=== PATIENT | female | born 1950 | race Caucasian/White ===

== ENCOUNTER 2019-03-26 13:53 | Emergency (ER) | payer MEDICARE, OTHER ==
[~2019-03-26] VITALS: Ht 170.2 cm; Wt 72.6 kg
[~2019-03-26 13:53] MED LIST: ALLO100 PO; ASPI81CH PO; Amoxicillin500 MG PO; CEPH500 PO; CITA20 PO; CLON1 PO; COLCRYS0.6 MG PO; FISH1000 PO; FLAX PO; HYDACE5 PO; LEVSOD50 PO; LISI10 PO; LISI5 PO; LORA1 PO; METF500 PO; ONDA4 PO; ONDA4ODT MM; Percocet 5-3251 EACH PO; RXONDA4ODT MM; ULTRA-LIGHT RO1 EACH MC; VICODIN ES 7.51 EACH PO
[2019-03-26] MEDS ORDERED: SUMA25 PO (14:18)
[2019-03-26] MEDS ORDERED: Prilosec Otc20 MG PO (14:18)
[2019-03-26] MEDS ORDERED: Percocet 5-3251 EACH PO ×2 (14:48→15:01)
[2019-03-26] MEDS ORDERED: Monodox100 MG PO (14:48)
== END 2019-03-26 14:53 | disposition home or self-care (01) ==
LOC: ER 13:53
DX: L03.116 Cellulitis of left lower limb (principal); Z79.899 Other long term (current) drug therapy; E11.9 Type 2 diabetes mellitus without complications; I10 Essential (primary) hypertension
CPT/HCPCS: 73630; 99283-25

== ENCOUNTER 2020-05-30 17:09 | Emergency (ER) | payer MEDICARE, OTHER ==
[~2020-05-30] VITALS: Ht 172.7 cm; Wt 81.7 kg
[~2020-05-30 17:09] MED LIST changes: +Monodox100 MG PO; +Prilosec Otc20 MG PO; +SUMA25 PO
[2020-05-30 18:18] LABS: BASOPHILS ABSOLUTE AUTO 0.03 K/mm3 (0.00-0.23); BASOPHILS PERCENT AUTO 1 % (0-2); EOSINOPHILS ABSOLUTE AUTO 0.14 K/mm3 (0.00-0.68); EOSINOPHILS PERCENT AUTO 3 % (0-6); Hemoglobin 13.2 g/dL (11.5-16.0); IMMATURE GRAN ABSOLUTE AUTO 0.02 K/mm3 (0.00-0.10); IMMATURE GRAN PERCENT AUTO 0 % (0-1); LYMPHOCYTES ABSOLUTE AUTO 1.32 K/mm3 (0.84-5.20); LYMPHOCYTES PERCENT AUTO 26 % (21-46); MONOCYTES ABSOLUTE AUTO 0.38 K/mm3 (0.16-1.47); MONOCYTES PERCENT AUTO 7 % (4-13); Mean Corpuscular HGB 28.4 pg (26.0-34.0); Mean Corpuscular HGB Conc 30.7 g/dL (31.5-36.5); Mean Corpuscular Volume 93 fL (80-100); Mean Platelet Volume 9.6 fL (9.1-12.4); NEUTROPHILS ABSOLUTE AUTO 3.25 K/mm3 (1.96-9.15); NEUTROPHILS PERCENT AUTO 63 % (41-73); Platelet Count 192 K/mm3 (150-400); RDW Coefficient Variation 13.5 % (11.7-14.2); RDW Standard Deviation 45.8 fL (35.1-46.3); Red Blood Cell Count 4.65 M/mm3 (3.80-5.20); White Blood Cell Count 5.14 K/mm3 (4.00-11.30)
[2020-05-30 18:35] LABS: Bilirubin, Total 0.3 mg/dL (0.1-1.0); Bun/Creatinine Ratio 18.9 (12.0-20.0); Calcium, Blood 9.5 mg/dL (8.5-10.1); Creatinine, Blood 1.06 mg/dL (0.40-1.00); Potassium, Blood 3.9 mmol/L (3.5-5.5)
[2020-05-30] MEDS ORDERED: PRED10 PO (21:46)
== END 2020-05-30 21:55 | disposition home or self-care (01) ==
LOC: ER 17:09
PROVIDERS: Physician Assistant
DX: R22.0 Localized swelling, mass and lump, head (principal); T78.40XA Allergy, unspecified, initial encounter; I10 Essential (primary) hypertension; E11.9 Type 2 diabetes mellitus without complications
CPT/HCPCS: 36415; 80053; 84484; 85025; 93005; 93010; 96374; 99283-25; J2930

== ENCOUNTER 2020-10-18 15:00 | Emergency (ER) | payer MEDICARE, OTHER ==
[~2020-10-18] VITALS: Ht 172.7 cm; Wt 72.6 kg
[~2020-10-18 15:00] MED LIST changes: +PRED10 PO
[2020-10-18 16:06] LABS: Source, Urine Clean Catch
[2020-10-18 16:08] LABS: Appearance, Urine Cloudy (Clear); Bilirubin, Urine Neg (Neg); Blood, Urine 5+ (Neg); Color, Urine Amber (P-Yellow); Glucose Qualitative, Urine Neg (Neg); Ketones, Urine 1+ (Neg); Leukocyte Esterase, Urine 3+ (Neg); Nitrite, Urine Neg (Neg); Protein, Urine 3+ (Neg); Specific Gravity, Urine 1.015 (1.003-1.022); Urobilinogen, Urine NORM (Normal); pH, Urine 6.5 (5.0-8.0)
[2020-10-18 16:09] LABS: BASOPHILS ABSOLUTE AUTO 0.04 K/mm3 (0.00-0.23); BASOPHILS PERCENT AUTO 0 % (0-2); EOSINOPHILS PERCENT AUTO 1 % (0-6); Hematocrit 44.2 % (33.0-51.0); Hemoglobin 13.8 g/dL (11.5-16.0); IMMATURE GRAN ABSOLUTE AUTO 0.04 K/mm3 (0.00-0.10); IMMATURE GRAN PERCENT AUTO 0 % (0-1); LYMPHOCYTES ABSOLUTE AUTO 1.58 K/mm3 (0.84-5.20); LYMPHOCYTES PERCENT AUTO 15 % (21-46); MONOCYTES ABSOLUTE AUTO 0.65 K/mm3 (0.16-1.47); MONOCYTES PERCENT AUTO 6 % (4-13); Mean Corpuscular HGB 28.4 pg (26.0-34.0); Mean Corpuscular HGB Conc 31.2 g/dL (31.5-36.5); Mean Corpuscular Volume 91 fL (80-100); Mean Platelet Volume 9.7 fL (9.1-12.4); NEUTROPHILS ABSOLUTE AUTO 8.28 K/mm3 (1.96-9.15); NEUTROPHILS PERCENT AUTO 77 % (41-73); Platelet Count 192 K/mm3 (150-400); RDW Coefficient Variation 13.6 % (11.7-14.2); RDW Standard Deviation 45.1 fL (35.1-46.3); Red Blood Cell Count 4.86 M/mm3 (3.80-5.20); White Blood Cell Count 10.69 K/mm3 (4.00-11.30)
[2020-10-18 16:18] LABS: Bacteria Mod /hpf; Squamous Epithelial Cells Not Seen /hpf (Few); White Blood Cells, Urine TNTC /hpf (0-5)
[2020-10-18 16:19] LABS: Red Blood Cells, Urine TNTC /hpf (0-2)
[2020-10-18 16:25] LABS: Alanine Aminotransfer (ALT/SGP 16 U/L (12-78); Albumin, Blood 3.8 g/dL (3.4-5.0); Albumin/Globulin Ratio 0.9 (0.8-1.8); Alk Phos 121 U/L (50-136); Anion Gap 5 mmol/L (6-16); Aspartate Aminotrans (AST/SGOT 13 U/L (12-37); Bilirubin, Total 0.4 mg/dL (0.1-1.0); Blood Urea Nitrogen 12 mg/dL (8-24); Bun/Creatinine Ratio 13.2 (12.0-20.0); CO2, Blood 27 mmol/L (21-32); Calcium, Blood 9.8 mg/dL (8.5-10.1); Chloride, Blood 108 mmol/L (98-108); Creatinine, Blood 0.91 mg/dL (0.40-1.00); Globulin, Blood 4.1 g/dL (2.2-4.0); Glomerular Filtration Rate >60 (60-); Glucose, Blood 167 mg/dL (70-99); Potassium, Blood 4.4 mmol/L (3.5-5.5); Sodium, Blood 140 mmol/L (136-145); Total Protein, Blood 7.9 g/dL (6.4-8.2)
[2020-10-18] MEDS ORDERED: CEPH500 PO (16:48)
[2020-10-18] MEDS ORDERED: Pyridium200 MG PO (16:48)
== END 2020-10-18 17:00 | disposition home or self-care (01) ==
LOC: ER 15:00
PROVIDERS: Physician Assistant
DX: N39.0 Urinary tract infection, site not specified (principal); I10 Essential (primary) hypertension; E11.9 Type 2 diabetes mellitus without complications; Z79.52 Long term (current) use of systemic steroids; Z79.899 Other long term (current) drug therapy
CPT/HCPCS: 36415; 80053; 81001; 85025; 87086; 93005; 93010; 99283-25; A9270-GY

== ENCOUNTER 2020-10-30 13:11 | Emergency (ER) | payer MEDICARE, OTHER ==
[~2020-10-30] VITALS: Ht 172.7 cm; Wt 72.6 kg
[~2020-10-30 13:11] MED LIST changes: +Pyridium200 MG PO
[2020-10-30 14:18] LABS: BASOPHILS ABSOLUTE AUTO 0.03 K/mm3 (0.00-0.23); BASOPHILS PERCENT AUTO 0 % (0-2); EOSINOPHILS ABSOLUTE AUTO 0.06 K/mm3 (0.00-0.68); EOSINOPHILS PERCENT AUTO 1 % (0-6); Hematocrit 45.7 % (33.0-51.0); Hemoglobin 14.6 g/dL (11.5-16.0); IMMATURE GRAN ABSOLUTE AUTO 0.05 K/mm3 (0.00-0.10); IMMATURE GRAN PERCENT AUTO 1 % (0-1); LYMPHOCYTES ABSOLUTE AUTO 1.27 K/mm3 (0.84-5.20); LYMPHOCYTES PERCENT AUTO 14 % (21-46); MONOCYTES ABSOLUTE AUTO 0.51 K/mm3 (0.16-1.47); MONOCYTES PERCENT AUTO 6 % (4-13); Mean Corpuscular HGB 28.3 pg (26.0-34.0); Mean Corpuscular HGB Conc 31.9 g/dL (31.5-36.5); Mean Corpuscular Volume 89 fL (80-100); NEUTROPHILS PERCENT AUTO 79 % (41-73); RDW Coefficient Variation 13.9 % (11.7-14.2); RDW Standard Deviation 45.9 fL (35.1-46.3); Red Blood Cell Count 5.15 M/mm3 (3.80-5.20); White Blood Cell Count 8.92 K/mm3 (4.00-11.30)
[2020-10-30 14:28] LABS: Appearance, Urine Clear (Clear); Blood, Urine Neg (Neg); Color, Urine Yellow (P-Yellow); Glucose Qualitative, Urine Neg (Neg); Ketones, Urine 1+ (Neg); Leukocyte Esterase, Urine 1+ (Neg); Nitrite, Urine Neg (Neg); Protein, Urine 1+ (Neg); Source, Urine Clean Catch; Urobilinogen, Urine NORM (Normal)
[2020-10-30 14:30] LABS: Mean Platelet Volume 10.4 fL (9.1-12.4); Platelet Count 182 K/mm3 (150-400)
[2020-10-30 14:40] LABS: Bilirubin, Urine 1+ (Neg)
[2020-10-30 14:41] LABS: Calcium Oxalate Crystals Many /hpf; Mucus Mod (0-Heavy)
[2020-10-30 14:42] LABS: Bacteria Few /hpf; Red Blood Cells, Urine Not Seen /hpf (0-2); Squamous Epithelial Cells Few /hpf (Few); White Blood Cells, Urine 0-2 /hpf (0-5)
[2020-10-30 15:13] LABS: Alanine Aminotransfer (ALT/SGP 14 U/L (12-78); Albumin, Blood 4.2 g/dL (3.4-5.0); Alk Phos 130 U/L (50-136); Anion Gap 5 mmol/L (6-16); Aspartate Aminotrans (AST/SGOT 15 U/L (12-37); Bilirubin, Total 0.5 mg/dL (0.1-1.0); Blood Urea Nitrogen 14 mg/dL (8-24); Bun/Creatinine Ratio 17.8 (12.0-20.0); CO2, Blood 26 mmol/L (21-32); Calcium, Blood 9.7 mg/dL (8.5-10.1); Chloride, Blood 108 mmol/L (98-108); Creatinine, Blood 0.79 mg/dL (0.40-1.00); Globulin, Blood 4.1 g/dL (2.2-4.0); Glomerular Filtration Rate >60 (60-); Glucose, Blood 168 mg/dL (70-99); Potassium, Blood 4.3 mmol/L (3.5-5.5); Sodium, Blood 139 mmol/L (136-145); Total Protein, Blood 8.3 g/dL (6.4-8.2)
[2020-10-30] MEDS ORDERED: LISINOPRIL2.5 MG PO (15:35)
[2020-10-30] MEDS ORDERED: EPINEPHRIN0.3 MG/0.1 IM (15:36)
[2020-10-30] MEDS ORDERED: Ventolin/Prove6.7 GM INH (15:37)
[2020-10-30] MEDS ORDERED: SULTRIDS PO (16:49)
== END 2020-10-30 17:15 | disposition home or self-care (01) ==
LOC: ER 13:11
PROVIDERS: Emergency Medicine
DX: N39.0 Urinary tract infection, site not specified (principal); I10 Essential (primary) hypertension; E11.9 Type 2 diabetes mellitus without complications; Z79.02 Long term (current) use of antithrombotics/antiplatelets; Z79.899 Other long term (current) drug therapy
CPT/HCPCS: 36415; 71046; 80053; 81001; 84484; 85025; 87086; 87147; 93005; 93010; 96374; 99284-25; J2060

== ENCOUNTER 2021-06-22 19:03 | Emergency (ER) | payer MEDICARE, OTHER ==
[~2021-06-22] VITALS: Ht 172.7 cm; Wt 68.0 kg
[~2021-06-22 19:03] MED LIST changes: +EPINEPHRIN0.3 MG/0.1 IM; +LISINOPRIL2.5 MG PO; +SULTRIDS PO; +Ventolin/Prove6.7 GM INH
[2021-06-22 20:20] LABS: SARS-Cov-2 (COVID-19) PCR, MMC NEGATIVE (NEGATIVE)
[2021-06-22] MEDS ORDERED: AMOCLA875 PO (21:04)
[2021-06-22] MEDS ORDERED: PSEU120ER PO (21:04)
[2021-06-22] MEDS ORDERED: FLUT.05NI (21:04)
== END 2021-06-22 21:28 | disposition home or self-care (01) ==
LOC: ER 19:03
PROVIDERS: Physician Assistant
DX: J32.9 Chronic sinusitis, unspecified (principal); B96.89 Other specified bacterial agents as the cause of diseases classified elsewhere; E11.9 Type 2 diabetes mellitus without complications; I10 Essential (primary) hypertension; Z20.822 Contact with and (suspected) exposure to COVID-19; Z79.899 Other long term (current) drug therapy
CPT/HCPCS: 71045; 87081; 87430; 99284-25; A9270; U0004

== ENCOUNTER 2021-12-29 12:12 | Emergency (ER) | payer MEDICARE, OTHER ==
[~2021-12-29] VITALS: Ht 170.2 cm; Wt 72.6 kg
[~2021-12-29 12:12] MED LIST changes: +AMOCLA875 PO; +FLUT.05NI; +PSEU120ER PO
[2021-12-29 13:46] LABS: BASOPHILS ABSOLUTE AUTO 0.04 K/mm3 (0.00-0.23); BASOPHILS PERCENT AUTO 1 % (0-2); EOSINOPHILS ABSOLUTE AUTO 0.12 K/mm3 (0.00-0.68); EOSINOPHILS PERCENT AUTO 2 % (0-6); Hematocrit 45.4 % (33.0-51.0); Hemoglobin 13.9 g/dL (11.5-16.0); IMMATURE GRAN ABSOLUTE AUTO 0.04 K/mm3 (0.00-0.10); IMMATURE GRAN PERCENT AUTO 1 % (0-1); LYMPHOCYTES ABSOLUTE AUTO 1.33 K/mm3 (0.84-5.20); LYMPHOCYTES PERCENT AUTO 19 % (21-46); MONOCYTES ABSOLUTE AUTO 0.48 K/mm3 (0.16-1.47); MONOCYTES PERCENT AUTO 7 % (4-13); Mean Corpuscular HGB 26.9 pg (26.0-34.0); Mean Corpuscular HGB Conc 30.6 g/dL (31.5-36.5); Mean Corpuscular Volume 88 fL (80-100); Mean Platelet Volume 9.5 fL (9.1-12.4); NEUTROPHILS ABSOLUTE AUTO 4.89 K/mm3 (1.96-9.15); NEUTROPHILS PERCENT AUTO 71 % (41-73); Platelet Count 233 K/mm3 (150-400); Red Blood Cell Count 5.16 M/mm3 (3.80-5.20)
[2021-12-29 13:58] LABS: Alanine Aminotransfer (ALT/SGP 21 U/L (12-78); Albumin, Blood 3.8 g/dL (3.4-5.0); Albumin/Globulin Ratio 0.9 (0.8-1.8); Alk Phos 128 U/L (50-136); Anion Gap 7 mmol/L (6-16); Aspartate Aminotrans (AST/SGOT 13 U/L (12-37); Bilirubin, Total 0.4 mg/dL (0.1-1.0); Blood Urea Nitrogen 12 mg/dL (8-24); Bun/Creatinine Ratio 14.9 (12.0-20.0); CO2, Blood 25 mmol/L (21-32); Calcium, Blood 9.3 mg/dL (8.5-10.1); Chloride, Blood 104 mmol/L (98-108); Creatinine, Blood 0.81 mg/dL (0.40-1.00); Globulin, Blood 4.4 g/dL (2.2-4.0); Glomerular Filtration Rate >60 (60-); Glucose, Blood 243 mg/dL (70-99); Potassium, Blood 4.7 mmol/L (3.5-5.5); Sodium, Blood 136 mmol/L (136-145); Total Protein, Blood 8.2 g/dL (6.4-8.2)
[2021-12-29 14:01] LABS: Source, Urine Clean Catch
[2021-12-29 14:12] LABS: Bilirubin, Urine Neg (Neg); Blood, Urine Neg (Neg); Glucose Qualitative, Urine Neg (Neg); Ketones, Urine Neg (Neg); Leukocyte Esterase, Urine 2+ (Neg); Nitrite, Urine Neg (Neg); Protein, Urine Neg (Neg); Specific Gravity, Urine 1.015 (1.003-1.022); Urobilinogen, Urine NORM (Normal)
[2021-12-29 14:37] LABS: Appearance, Urine Hazy (Clear); Color, Urine Pale Yellow (P-Yellow)
[2021-12-29 14:38] LABS: Amorphous Light (0-Heavy); Bacteria Mod /hpf; Mucus Mod (0-Heavy); Red Blood Cells, Urine 0-2 /hpf (0-2); Squamous Epithelial Cells Rare /hpf (Few)
[2021-12-29] MEDS ORDERED: CEPH500 PO ×2 (16:41→16:49)
== END 2021-12-29 16:53 | disposition home or self-care (01) ==
LOC: ER 12:12
PROVIDERS: Emergency Medicine
DX: N17.9 Acute kidney failure, unspecified (principal); E11.65 Type 2 diabetes mellitus with hyperglycemia; N39.0 Urinary tract infection, site not specified; E86.0 Dehydration; I10 Essential (primary) hypertension; Z79.899 Other long term (current) drug therapy
CPT/HCPCS: 71045; 80053; 81001; 84484; 85025; 93005; 93010; 99285-25; A9270

== ENCOUNTER 2022-02-25 14:56 | Inpatient (IN) | payer MEDICARE, OTHER ==
[~2022-02-25] VITALS: Ht 172.7 cm; Wt 71.0 kg
[2022-02-25 15:57] LABS: Ethanol (Alcohol), Blood, Med <3 mg/dL; Magnesium, Blood 2.6 mg/dL (1.6-2.4)
[2022-02-25 15:59] LABS: BASOPHILS ABSOLUTE AUTO 0.03 K/mm3 (0.00-0.23); BASOPHILS PERCENT AUTO 0 % (0-2); EOSINOPHILS ABSOLUTE AUTO 0.01 K/mm3 (0.00-0.68); EOSINOPHILS PERCENT AUTO 0 % (0-6); Hematocrit 53.1 % (33.0-51.0); Hemoglobin 16.5 g/dL (11.5-16.0); IMMATURE GRAN ABSOLUTE AUTO 0.14 K/mm3 (0.00-0.10); IMMATURE GRAN PERCENT AUTO 1 % (0-1); LYMPHOCYTES ABSOLUTE AUTO 1.79 K/mm3 (0.84-5.20); LYMPHOCYTES PERCENT AUTO 11 % (21-46); MONOCYTES ABSOLUTE AUTO 0.83 K/mm3 (0.16-1.47); MONOCYTES PERCENT AUTO 5 % (4-13); Mean Corpuscular HGB 28.5 pg (26.0-34.0); Mean Corpuscular HGB Conc 31.1 g/dL (31.5-36.5); Mean Corpuscular Volume 92 fL (80-100); NEUTROPHILS ABSOLUTE AUTO 13.18 K/mm3 (1.96-9.15); NEUTROPHILS PERCENT AUTO 82 % (41-73); Platelet Count 179 K/mm3 (150-400); RDW Standard Deviation 50.7 fL (35.1-46.3); Red Blood Cell Count 5.79 M/mm3 (3.80-5.20); White Blood Cell Count 15.98 K/mm3 (4.00-11.30)
[2022-02-25 16:09] LABS: Alanine Aminotransfer (ALT/SGP 18 U/L (12-78); Albumin, Blood 3.5 g/dL (3.4-5.0); Albumin/Globulin Ratio 0.8 (0.8-1.8); Alk Phos 130 U/L (50-136); Anion Gap 12 mmol/L (6-16); Aspartate Aminotrans (AST/SGOT 8 U/L (12-37); Bilirubin, Total 0.9 mg/dL (0.1-1.0); Blood Urea Nitrogen 62 mg/dL (8-24); Bun/Creatinine Ratio 30.1 (12.0-20.0); CO2, Blood 20 mmol/L (21-32); Calcium, Blood 9.9 mg/dL (8.5-10.1); Chloride, Blood 105 mmol/L (98-108); Creatinine, Blood 2.06 mg/dL (0.40-1.00); Globulin, Blood 4.5 g/dL (2.2-4.0); Glomerular Filtration Rate 24 (60-); Glucose, Blood 664 mg/dL (70-99); Potassium, Blood 4.9 mmol/L (3.5-5.5); Sodium, Blood 137 mmol/L (136-145)
[2022-02-25 16:57] LABS: Source, Urine Clean Catch
[2022-02-25 17:03] LABS: Appearance, Urine Clear (Clear); Blood, Urine Neg (Neg); Color, Urine Amber (P-Yellow); Glucose Qualitative, Urine 4+ (Neg); Ketones, Urine 1+ (Neg); Leukocyte Esterase, Urine Neg (Neg); Nitrite, Urine Neg (Neg); Protein, Urine 1+ (Neg); Urobilinogen, Urine 1+ (Normal)
[2022-02-25 17:15] LABS: Bilirubin, Urine 2+ (Neg)
[2022-02-25 17:21] LABS: U Amphetamine Screen Not Detected; U Barbituate Screen Not Detected; U Benzodiazapine Screen Not Detected; U Buprenorphine Screen Not Detected; U Cannabinoids Screen Not Detected; U Cocaine Screen Not Detected; U Methadone Screen Not Detected; U Methamphetamine Screen Not Detected; U Opiates Screen Not Detected; U Oxycodone Screen Not Detected; U Phencyclidine Screen Not Detected; U Propoxyphene Screen Not Detected
[2022-02-26 04:27] LABS: Hematocrit 49.5 % (33.0-51.0); Hemoglobin 15.2 g/dL (11.5-16.0); Mean Corpuscular HGB Conc 30.7 g/dL (31.5-36.5); Mean Corpuscular Volume 91 fL (80-100); Mean Platelet Volume 11.1 fL (9.1-12.4); Platelet Count 152 K/mm3 (150-400); RDW Coefficient Variation 15.1 % (11.7-14.2); Red Blood Cell Count 5.43 M/mm3 (3.80-5.20); White Blood Cell Count 14.97 K/mm3 (4.00-11.30)
[2022-02-26 04:40] LABS: Bun/Creatinine Ratio 40.9 (12.0-20.0); Creatinine, Blood 1.32 mg/dL (0.40-1.00); Potassium, Blood 3.7 mmol/L (3.5-5.5)
--- NOTE | 2022-02-26 05:56 | NUR ---
ARRIVED IN PCU AT 2150 SHIFT SANTANA: NEURO - PT ALERT TO PERSON AND PLACE, NOT A VERY GOOD HISTORIAN AND UNABLE TO GET ANSWERS REGARDING HISTORY, LIVING ARRANGEMENT AND ADLs. PER PT HX, PT HAS MEMORY LOSS, COULD BE DIMENTIA. DID HAVE AN EPISODE OF AGITATION AND CONFUSION AROUND 0400. CAN REPOSITION SELF IN BED INDEPENDENTLY BUT UNABLE TO TEST GAIT. EXTREMITIES EQUAL IN STRENGTH. BED ALARM ON. RESP - DIMINISHED/CLEAR LUNG SOUNDS, NO COUGH, ON ROOM AIR. NO COMPLAINTS OF DIFFICULTY BREATHING OR SOB. CARDIAC - NSR HR IN THE 80-90's. AFEBRILE. NO EDEMA. NO PEDAL PULSES FELT OR HEARD ON DOPPLER, WAS ABLE TO GET A TIBIAL PULSE PER DOPPLER. GI/ - PT ON CLEAR LIQUID DIET, NO ISSUES WITH SWALLOWING. UNABLE TO VOID AND GOT AGITATED, BLADDER SCANNED PT AND STRAIGHT CATH FOR A TOTAL OF 500 ML. PT HAS A BRIEF ON. Q4 BLOOD SUGAR CHECKS AT THE MOMENT. INTEG - SKIN IS INTACT. MINOR SCATTERED ABRASIONS ALSO HAS ABRASIONS/CALLUS ON FEET.
--- NOTE | 2022-02-26 07:39 | NUR ---
Pt is awake, cooperative and pleasant/appropriate in conversation. She can state her name but does not know where she is at. States she thinks she might be in [place]. States she does not know where she lives. When asked about her family, she says she can't quite remember anything about her family right now. Face is pale, RR regular, unlabored while sitting up in bed. She asked for ice water, states she feels very thirsty. Fingernails are pale, dusky and fingers are cool and have cyanosis and areas of pallor. Her radial pulses are palpable. Noted swelling of hands and fingers. Toes likewise are cool, nail beds are pale. Cap refill is sluggish and right foot is cool and dusky. Left foot is cyanotic, swollen and pt states it feels numb. Unable to palpate pulses on her feet. Pt states that she feels nauseated.
--- NOTE | 2022-02-26 08:10 | NUR ---
Pt is nauseated, vomiting. Call to Dr. Boyd to ask for antiemetics.
[2022-02-26] MEDS ORDERED: SUMATRIPTAN SUCCINAT PO (09:51)
[2022-02-26] MEDS ORDERED: ALLO100 PO (09:52)
[2022-02-26] MEDS ORDERED: GLIP5 PO (09:53)
[2022-02-26] MEDS ORDERED: DOXYLAMINE SUCCINATE PO (09:54)
--- NOTE | 2022-02-26 09:55 | NUR ---
Mentation clearing. She is able to recall some details of instruction and explanation from an hour ago. Appropriate conversation, admits to not remembering what has been going on at home for past several days. Still having nausea after dose of zofran, but no further vomiting. Tried sips of chris mist and clear jello, but unable to tolerate due to nausea, she says. Says that she just wants to sleep. Left side lying, eyes closed and denies pain at this time.
--- NOTE | 2022-02-26 09:58 | NUR ---
Main concerns this morning: confusion, clearing. CBG normalizing. --nausea, perisistent. Abdominal pain to gentle palpation. BS active. --peripheral cyanosis hands and feet. Pulses BLE unable to palpate, only able to verify by doppler and left foot pedal unable to find by doppler. Also has swelling and pain of left leg to palpation.
--- NOTE | 2022-02-26 11:38 | NUR ---
rounded with Dr. Avelar in room. Pt's son Ruslan and Devin are in room. Ruslan is distraught, crying and talking with his mom, attempting to convince her to eat/drink because he "doesn't want to see her with a feeding tube up her nose". He was quite emotional at the news that she has had some mini-strokes. Pt is lying on her side, still unable to tolerate clear liquids. ATempted to have some popsicle but states that she is still nauseated.
[2022-02-26 12:35] LABS: Influenza A, PCR NEGATIVE (NEGATIVE); Influenza B, PCR NEGATIVE (NEGATIVE); Resp Syncytial Virus, PCR NEGATIVE (NEGATIVE); SARS-Cov-2 (COVID-19) PCR, MMC NEGATIVE (NEGATIVE)
--- NOTE | 2022-02-26 12:42 | NUR ---
Call to Dr. Boyd; LE duplex order updated to bilateral. [facility] is here, completing the exams.
[2022-02-26 14:06] LABS: CHOL/HDL RATIO 5.2; Cholesterol 177 mg/dL (50-200); HDL Cholesterol 34 mg/dL (>39); Low Density Lipoprotein Chol 101 mg/dL (0-110); Triglycerides 212 mg/dL (30-160); Very Low Density Lipoprot Chol 42 mg/dL (6-32)
[2022-02-26 14:11] LABS: Anti-Xa UFH, PHA Monitoring 0.24 IU/mL; International Normalized Ratio 1.07; Prothrombin Time Results 11.2 Sec (9.7-11.5)
--- NOTE | 2022-02-26 17:03 | NUR ---
Updated Devin and son Ruslan on the pt's condition and current plan of care and treatment. Pt is tolerating some liquids now at this time.
--- NOTE | 2022-02-26 17:12 | NUR ---
Dr. Caruso is here talking with the patient, pt's Devin and pt's son Ruslan.
--- NOTE | 2022-02-26 17:48 | NUR ---
Called Dr. Lucas to let her know that VQ scan cannot be done until tomorrow morning. Pt's LLE was wrapped with Torrey wrap by Dr. Caruso. Pt will be going down for CT scan shortly.
--- NOTE | 2022-02-26 18:21 | NUR ---
Pt returned from CT scan, repositioned self to right side lying and left leg was elevated on three pillows; pt states it feels very comfortable. She had some sprite, but does not want any more by mouth at this time. Denies any specific pain, but states general discomfort and some back pain. Warm blanket provided and pt states that it feels amazing.
--- NOTE | 2022-02-26 18:24 | NUR ---
Pt is alert, oriented to person, place and following directions. Can also recall some recent events but is often forgetful of ongoing events and recent events as well. Appropriate in conversation with staff and with her family. Pt was not tolerant of much po intake today. However, she did take some sprite, iced coffee given to her by family, ice chips and a small portion of ice cream. She declined all other p.o intake today. Had one episode of vomiting this morning, none after a dose of zofran. Generally said today that she just wanted to sleep. No specific c/o pain, but did have some abdominal tenderness noted on assessment this morning. No changes to her circulatory assessment and color/temperature of skin noted since this morning. Left leg is now wrapped in maverick wrap and elevated on pillows. Bed alarm is on.
[2022-02-27 04:18] LABS: BASOPHILS ABSOLUTE AUTO 0.02 K/mm3 (0.00-0.23); BASOPHILS PERCENT AUTO 0 % (0-2); EOSINOPHILS ABSOLUTE AUTO 0.06 K/mm3 (0.00-0.68); EOSINOPHILS PERCENT AUTO 1 % (0-6); IMMATURE GRAN ABSOLUTE AUTO 0.09 K/mm3 (0.00-0.10); IMMATURE GRAN PERCENT AUTO 1 % (0-1); LYMPHOCYTES ABSOLUTE AUTO 1.85 K/mm3 (0.84-5.20); LYMPHOCYTES PERCENT AUTO 19 % (21-46); MONOCYTES ABSOLUTE AUTO 0.62 K/mm3 (0.16-1.47); MONOCYTES PERCENT AUTO 7 % (4-13); Mean Corpuscular HGB 28.6 pg (26.0-34.0); Mean Corpuscular HGB Conc 31.7 g/dL (31.5-36.5); Mean Corpuscular Volume 90 fL (80-100); NEUTROPHILS ABSOLUTE AUTO 6.91 K/mm3 (1.96-9.15); NEUTROPHILS PERCENT AUTO 72 % (41-73); RDW Coefficient Variation 15.1 % (11.7-14.2); RDW Standard Deviation 50.2 fL (35.1-46.3); Red Blood Cell Count 4.54 M/mm3 (3.80-5.20); White Blood Cell Count 9.55 K/mm3 (4.00-11.30)
[2022-02-27 04:43] LABS: Mean Platelet Volume 12.4 fL (9.1-12.4); Platelet Count 59 K/mm3 (150-400)
[2022-02-27 05:25] LABS: Albumin, Blood 2.5 g/dL (3.4-5.0); Anion Gap 5 mmol/L (6-16); Blood Urea Nitrogen 30 mg/dL (8-24); CO2, Blood 24 mmol/L (21-32); Calcium, Blood 8.6 mg/dL (8.5-10.1); Chloride, Blood 113 mmol/L (98-108); Creatinine, Blood 0.79 mg/dL (0.40-1.00); Glomerular Filtration Rate >60 (60-); Glucose, Blood 253 mg/dL (70-99); Phosphorus, Blood 2.5 mg/dL (2.5-4.9); Potassium, Blood 5.4 mmol/L (3.5-5.5); Sodium, Blood 142 mmol/L (136-145)
--- NOTE | 2022-02-27 06:09 | NUR ---
SHIFT SUMMARY PT ALERT, ORIENTED TO SELF AND PERSON. FORGETFUL, MOSTLY WHEN WAKING UP FROM SLEEPING. ASKS WHERE SHE IS AT, UNAWARE SHE IS IN THE HOSPITAL. BP STABLE. ON RA SATS OVER 97%. AFEBRILE. PULSE SR 80-90'S. 1/2 NS RUNNING IN POWERGLIDE. PG DRAWS BLOOD. HEP GTT INFUSING. IN BED SLEEPING WITH CALL ALARM AT SIDE, WILL CONTINUE TO MONITOR UNTIL REPORT GIVEN TO DAYSHIFT RN
--- NOTE | 2022-02-27 07:50 | NUR ---
ASSUMED CARE OF PATIENT AT 0700. PATIENT ALERT AND ORIENTED TO SELF AND SORROUNDING. PATIENT IS AWARE THAT SHE IS IN THE HOSPITAL BUT NOT SURE WHY, DOES NOT RECALL THE DAY, MONTH AND YEAR. REORIENT PATIENT AND REASON OF ADMISSION INTO THE HOSPITAL. VSS, NO FEVER, AND NO SOB. PATIENT REPORT OF NAUSEOUS MEDICATED WITH ZOLFRAN PER EMAR. PATIENT ATE COUPLE BITES OF CREAM OF WHEAT AND COUPLE BITES OF CUSTARD. PATIENT REPORT THAT SHE HAS NO APPETITE AND WANT TO REST. BED ALARM ON AND TWO SIDE RAIL UP FOR SAFTEY. CALL LIGHT IN REACH. WILL CONTINUE TO MONITOR PATIENT THROUGHT SHIFT.
--- NOTE | 2022-02-27 08:35 | NUR ---
DR CHATTERJEE IN ROOM TO SEE PATIENT. ORDER TO LEAVE WILLIAN WRAPED OFF FOR NOW AND CONTINUED TO ELEVATE LEFT LEG ON PILLOWS. PATIENT REPORTED TO DR CHATTERJEE OF HAVING PAIN ON LEFT LEG. PATIENT LEFT LEG WARM TO THE TOUCH AND LITTLE BIT OF REDNESS ON LEFT FOOT.
--- NOTE | 2022-02-27 11:18 | NUR ---
Pt's "Ino" and son Ruslan are at the bedside. Given an update on the pt's condition and current plan. They expressed concern about her diabetes mangament. Son Ruslan states that he went to diabetes education class with his mom years ago, but now that they will be taking care of her medications and checking her blood sugar now it would be helpful to have a refresh on it. Dietitian consultation was ordered.
--- NOTE | 2022-02-27 11:21 | NUR ---
Bedbath complete. Pt is alert, oriented to person, place, following directions and is pleasant, cheerful, grateful and cooperative. She had some nausea this morning, without vomiting and was given zofran, and has been tolerating small amounts of sprite and ice chips. Is requesting ice cream now. Voiding dark yellow urine. No bowel movement. No c/o abdominal pain. Vital signs are stable. Left lower extremity shows marked improvement from yesterday, with less swelling, still pale above the ankle but pink and warm on the ankle left foot and left toes with brisk cap refill. Able to dopple the posterial tibial pulse, but not the pedal. Pt c/o pain in the great toe Left foot and it is bright pink. Pt has allopurinol on her home med list. Dr. Caruso states it appears like gout. Right foot is cool with some dusky color, and the hands and fingers are still cool and dusky. Pt c/o feeling cold this morning. relief with warm blankets to the extremities and trunk. Declined OOB to the chair following bed bath. She was able to get up and use the bedside commode with a one person assist transfer yesterday, and is moving and repositioning in the bed without some weakness but no significant difficulty. Palliative care is visiting with family at this time. Also spoke with Layla, bed manager regarding discharge plan. Family states they do NOT want her to go to SNF because of her appetite being so poor they are worried she would not get nutrition if she is not fed.
--- NOTE | 2022-02-27 13:50 | NUR ---
heparin gtt stopped at this time, after critical high value received.
--- NOTE | 2022-02-27 13:57 | NUR ---
Dr. Lucas notified of critical high PTT; new instructions to stop heparin gtt if the platlet level drawn at this time is lower than the level drawn this morning, and started on xarelto.
[2022-02-27 14:03] LABS: Mean Platelet Volume 10.7 fL (9.1-12.4); Platelet Count 103 K/mm3 (150-400)
--- NOTE | 2022-02-27 14:09 | NUR ---
Call from pharmacist Nelida Virk, regarding new heparin orders to restart gtt in 1 hour at lower dose. Explained to her that we are also verifing labs for HIT and will keep them updated on results.
--- NOTE | 2022-02-27 15:33 | NUR ---
Restarted heparin gtt at this time, per orders.
[2022-02-28 04:05] LABS: BASOPHILS ABSOLUTE AUTO 0.03 K/mm3 (0.00-0.23); BASOPHILS PERCENT AUTO 0 % (0-2); EOSINOPHILS ABSOLUTE AUTO 0.08 K/mm3 (0.00-0.68); EOSINOPHILS PERCENT AUTO 1 % (0-6); Hemoglobin 11.7 g/dL (11.5-16.0); IMMATURE GRAN ABSOLUTE AUTO 0.11 K/mm3 (0.00-0.10); IMMATURE GRAN PERCENT AUTO 2 % (0-1); LYMPHOCYTES PERCENT AUTO 23 % (21-46); MONOCYTES ABSOLUTE AUTO 0.49 K/mm3 (0.16-1.47); MONOCYTES PERCENT AUTO 7 % (4-13); Mean Corpuscular HGB 28.7 pg (26.0-34.0); Mean Corpuscular HGB Conc 31.6 g/dL (31.5-36.5); Mean Corpuscular Volume 91 fL (80-100); Mean Platelet Volume 11.2 fL (9.1-12.4); NEUTROPHILS ABSOLUTE AUTO 4.53 K/mm3 (1.96-9.15); NEUTROPHILS PERCENT AUTO 66 % (41-73); Platelet Count 100 K/mm3 (150-400); RDW Standard Deviation 49.8 fL (35.1-46.3); Red Blood Cell Count 4.08 M/mm3 (3.80-5.20); White Blood Cell Count 6.84 K/mm3 (4.00-11.30)
[2022-02-28 04:26] LABS: Anion Gap 5 mmol/L (6-16); Blood Urea Nitrogen 19 mg/dL (8-24); Bun/Creatinine Ratio 23.6 (12.0-20.0); CO2, Blood 22 mmol/L (21-32); Calcium, Blood 8.3 mg/dL (8.5-10.1); Chloride, Blood 112 mmol/L (98-108); Creatinine, Blood 0.81 mg/dL (0.40-1.00); Glomerular Filtration Rate >60 (60-); Glucose, Blood 289 mg/dL (70-99); Potassium, Blood 4.3 mmol/L (3.5-5.5); Sodium, Blood 139 mmol/L (136-145)
--- NOTE | 2022-02-28 05:44 | NUR ---
SHIFT SUMMARY PT ALERT AND ORIENTED X3. UNABLE TO RECALL DATE/MONTH. HX OF DEMENTIA, FORGETFUL AT TIMES. WILL WAKE UP CONFUSED BUT MORE ORIENTED AFTER LONGER PERIODS OF BEING UP. AFEBRILE. HR 70'S. BP STABLE. PT TURNS ON HER OWN. L FOOT ELEVATED. HEP GTT INFUSING. 1/2 NS INFUSING AT 75ML/HR. PG DRAWS BLOOD . IN BED SLEEPING, WILL CONTINUE TO MONITOR UNTIL REPORT GIVEN TO DAYSHIFT RN.
--- NOTE | 2022-02-28 10:33 | NUR ---
TRANSFER UPDATE PT TRANSFERED TO MEDICAL FLOOR AT 0925 VIA HOSPITAL BED AND OCCOMPANIED BY TWO STAFF MEMBERS. PT BELONGINGS IN BAGS AND WITH PT DURING TRANSFER. PT CHART TRANSFERED WITH PT. MEDS IN GREEN BAG AND TRANSFERED WITH PT. PT ON RA DURING TRANSFER. HEPARIN GTT AND NS RUNNING PER EMAR DURING TRANSFER. REPORT GIVEN TO DEWEY ADAMS AT 0916.
--- NOTE | 2022-02-28 17:39 | NUR ---
Pt admitted to the hospital with altered mental status, weakness and poor appetite. According to pt's son and , this is not new, and has been going on for over 6 months. It was determined she has blood clots in her leg upon testing here at the hospital. Pt's family state she is extremely stubborn, and has been refusing to go to any dr appointments, or even get out of bed. She is pleasantly confused, and is able to answer basic yes or no questions like her name, and will generally forget the conversation quickly afterward. We discussed a lot of issues, such as code status. At the time, her family was not willing to change the POLST yet. Palliative and dietary met together with family, and they are beginning to understand that pt will likely continue to have a poor appetite, as she has has had memory issues for approximately 10 years. Son and are beginning to discuss how best to care for patient in the future. Will re-evaluate this on Saturday 03/03. .
[2022-02-28] MEDS ORDERED: XARELTO20 MG PO (17:56)
[2022-02-28] MEDS ORDERED: BASAGLAR K100 UNIT/1 SC (17:57)
[2022-02-28] MEDS ORDERED: HUMALOG KW100 UNIT/1 SC (17:58)
[2022-02-28] MEDS ORDERED: ONDA4 PO (17:59)
[2022-02-28] MEDS ORDERED: PANT20 PO (18:00)
--- NOTE | 2022-02-28 18:28 | NUR ---
DISCHARGE SUMMARY PATIENT IS A TRANSFER FROM PCU THIS MORNING. PATIENT HAS HAD NO ACUTE ISSUES THIS SHIFT. VITAL SIGNS REVIEWED. PATIENT IS BEING DISCHARGE WITH HOME HEALTH AND DRIVEN HOME BY AND SON. PATIENT AND FAMILY HAVE UNDERSTOOD DISCHARGE INFORMATION. PATIENT DOES NOT HAVE A PCP BUT HAS AN APPOINTMENT IN A WEEK. PATIENT MEDICATIONS FAXED TO [facility]
[2022-03-01 13:11] LABS: HEPARIN INDUCED PLATELET AB 0.138 OD (0.000-0.400)
[2022-03-01] MEDS ORDERED: HUMALOG KW100 UNIT/1 SC (19:58)
[2022-03-01] MEDS ORDERED: BASAGLAR K100 UNIT/1 SC (19:58)
[2022-03-01] MEDS ORDERED: Glucotrol Xl5 MG PO (19:58)
== END 2022-02-28 18:50 | disposition home health service (06) | DRG 682 ==
LOC: ER 14:56 → PCU 21:22 → MEDS 02-28 09:48
PROVIDERS: Internal Medicine; Physician Assistant; ADMIT Internal Medicine
DX: N17.9 Acute kidney failure, unspecified (principal); G92.8 Other toxic encephalopathy; E87.0 Hyperosmolality and hypernatremia; I82.412 Acute embolism and thrombosis of left femoral vein; I82.4Z2 Acute embolism and thrombosis of unspecified deep veins of left distal lower extremity; I82.812 Embolism and thrombosis of superficial veins of left lower extremity; E11.65 Type 2 diabetes mellitus with hyperglycemia; I10 Essential (primary) hypertension; R62.7 Adult failure to thrive; R11.0 Nausea; Z20.822 Contact with and (suspected) exposure to COVID-19; K21.9 Gastro-esophageal reflux disease without esophagitis; R07.9 Chest pain, unspecified; D69.6 Thrombocytopenia, unspecified; R63.4 Abnormal weight loss; D72.829 Elevated white blood cell count, unspecified; F03.90 Unspecified dementia, unspecified severity, without behavioral disturbance, psychotic disturbance, mood disturbance, and anxiety; R63.0 Anorexia; M62.84 Sarcopenia; E86.0 Dehydration; Z98.890 Other specified postprocedural states; Z68.30 Body mass index [BMI] 30.0-30.9, adult; Z98.51 Tubal ligation status; Z90.49 Acquired absence of other specified parts of digestive tract; Z79.2 Long term (current) use of antibiotics; Z79.899 Other long term (current) drug therapy
CPT/HCPCS: 0241U; 36415; 51701; 70450; 71045; 71260; 74177; 80048; 80053; 80061; 80069; 82947; 83036; 83605; 83690; 83735; 84484; 84550; 85025; 85027; 85049; 85379; 85520; 85610; 85730; 86022; 87040; 93005; 93010; 93306; 93880; 93970; 96374; 96375; 97110; 97116; 97162; 97530; 99285-25; A9270; C1751; C9113; G0480; J0696; J1644; J1650; J1815; J2405; J2550; J7030; Q9967

== ENCOUNTER 2022-03-01 18:10 | Emergency (ER) | payer MEDICARE, OTHER ==
[~2022-03-01] VITALS: Ht 172.7 cm; Wt 68.0 kg
[~2022-03-01 18:10] MED LIST changes: +BASAGLAR K100 UNIT/1 SC; +DOXYLAMINE SUCCINATE PO; +GLIP5 PO; +HUMALOG KW100 UNIT/1 SC; +PANT20 PO; +SUMATRIPTAN SUCCINAT PO; +XARELTO20 MG PO
[2022-03-01] MEDS ORDERED: Glucotrol Xl5 MG PO (19:58)
[2022-03-01] MEDS ORDERED: HUMALOG KW100 UNIT/1 SC (19:58)
[2022-03-01] MEDS ORDERED: BASAGLAR K100 UNIT/1 SC (19:58)
== END 2022-03-01 21:14 | disposition home or self-care (01) ==
LOC: ER 18:10
DX: Z76.0 Encounter for issue of repeat prescription (principal); E11.9 Type 2 diabetes mellitus without complications; I10 Essential (primary) hypertension; Z79.4 Long term (current) use of insulin
CPT/HCPCS: 82947; 99281; A9270; J1815

== ENCOUNTER → 2022-03-28 | Outpatient (CLI) | payer MEDICARE, OTHER ==
[~2022-03-28] MED LIST changes: +Glucotrol Xl5 MG PO
[2022-03-28 17:36] LABS: Source, Urine Clean Catch
[2022-03-28 17:56] LABS: Bilirubin, Urine Neg (Neg); Blood, Urine Neg (Neg); Color, Urine Yellow (P-Yellow); Glucose Qualitative, Urine Neg (Neg); Ketones, Urine Neg (Neg); Leukocyte Esterase, Urine Neg (Neg); Nitrite, Urine Neg (Neg); Protein, Urine Neg (Neg); Specific Gravity, Urine 1.015 (1.003-1.022); Urobilinogen, Urine NORM (Normal); pH, Urine 6.5 (5.0-8.0)
[2022-03-28 18:10] LABS: Appearance, Urine Hazy (Clear)
[2022-03-28 18:11] LABS: Bacteria Mod /hpf; Red Blood Cells, Urine 0-2 /hpf (0-2); Squamous Epithelial Cells Few /hpf (Few)
== END | disposition home or self-care (01) ==
LOC: LAB 17:33 → LAB SHORT 17:33
PROVIDERS: Nurse Practitioner Family
DX: G92.8 Other toxic encephalopathy (principal); E86.0 Dehydration
CPT/HCPCS: 81001; 87086

== ENCOUNTER → 2022-10-02 | Outpatient (CLI) | payer MEDICARE, OTHER | END | disposition home or self-care (01) | LOC: LAB 13:32 → LAB SHORT 13:32 | DX: R30.9 Painful micturition, unspecified (principal) | CPT/HCPCS: 87086 ==

== ENCOUNTER → 2023-08-12 | Outpatient (CLI) | payer MEDICARE, OTHER | END | disposition home or self-care (01) | LOC: LAB 15:00 → LAB SHORT 15:00 | DX: R30.9 Painful micturition, unspecified (principal) | CPT/HCPCS: 87086 ==

== ENCOUNTER 2023-08-26 21:13 | Emergency (ER) | payer MEDICARE, OTHER ==
[~2023-08-26] VITALS: Ht 172.7 cm; Wt 68.0 kg
[2023-08-26 21:19] VITALS: BP 127/92
[2023-08-26] MEDS ORDERED: Zovirax800 MG PO (21:29)
== END 2023-08-26 21:38 | disposition home or self-care (01) ==
LOC: ER 21:13
DX: B02.9 Zoster without complications (principal); Z79.899 Other long term (current) drug therapy; Z79.4 Long term (current) use of insulin; I10 Essential (primary) hypertension; E11.9 Type 2 diabetes mellitus without complications
CPT/HCPCS: 99283; A9270

== ENCOUNTER 2023-08-28 12:45 | Emergency (ER) | payer MEDICARE, OTHER ==
[~2023-08-28] VITALS: Ht 172.7 cm; Wt 65.8 kg
[~2023-08-28 12:45] MED LIST changes: +Zovirax800 MG PO
[2023-08-28 13:00] VITALS: BP 117/82
[2023-08-28 13:17] LABS: BASOPHILS ABSOLUTE AUTO 0.02 K/mm3 (0.00-0.23); BASOPHILS PERCENT AUTO 0 % (0-2); EOSINOPHILS ABSOLUTE AUTO 0.07 K/mm3 (0.00-0.68); EOSINOPHILS PERCENT AUTO 1 % (0-6); Hematocrit 42.8 % (33.0-51.0); Hemoglobin 14.2 g/dL (11.5-16.0); IMMATURE GRAN ABSOLUTE AUTO 0.02 K/mm3 (0.00-0.10); IMMATURE GRAN PERCENT AUTO 0 % (0-1); LYMPHOCYTES ABSOLUTE AUTO 1.84 K/mm3 (0.84-5.20); LYMPHOCYTES PERCENT AUTO 24 % (21-46); MONOCYTES ABSOLUTE AUTO 0.64 K/mm3 (0.16-1.47); MONOCYTES PERCENT AUTO 8 % (4-13); Mean Corpuscular HGB 31.6 pg (26.0-34.0); Mean Corpuscular HGB Conc 33.2 g/dL (31.5-36.5); Mean Corpuscular Volume 95 fL (80-100); Mean Platelet Volume 9.1 fL (9.1-12.4); NEUTROPHILS ABSOLUTE AUTO 5.15 K/mm3 (1.96-9.15); NEUTROPHILS PERCENT AUTO 66 % (41-73); Platelet Count 179 K/mm3 (150-400); RDW Coefficient Variation 13.2 % (11.7-14.2); RDW Standard Deviation 46.8 fL (35.1-46.3); Red Blood Cell Count 4.49 M/mm3 (3.80-5.20); White Blood Cell Count 7.74 K/mm3 (4.00-11.30)
[2023-08-28 13:45] LABS: Albumin, Blood 3.4 g/dL (3.4-5.0); Albumin/Globulin Ratio 0.8 (0.8-1.8); Bilirubin, Total 0.3 mg/dL (0.1-1.0); Bun/Creatinine Ratio 31.3 (12.0-20.0); Calcium, Blood 9.1 mg/dL (8.5-10.1); Creatinine, Blood 0.83 mg/dL (0.40-1.00); Globulin, Blood 4.1 g/dL (2.2-4.0); Potassium, Blood 4.1 mmol/L (3.5-5.5); Total Protein, Blood 7.5 g/dL (6.4-8.2)
[2023-08-28] MEDS ORDERED: GABA300 PO (15:53)
[2023-08-28] MEDS ORDERED: AMOCLA875 PO (15:53)
[2023-08-28] MEDS ORDERED: VALA500 PO (15:53)
== END 2023-08-28 16:53 | disposition home or self-care (01) ==
LOC: ER 12:45
PROVIDERS: Student in an Organized Health Care Education/Training Program
DX: B02.9 Zoster without complications (principal); J03.90 Acute tonsillitis, unspecified; E11.9 Type 2 diabetes mellitus without complications; I10 Essential (primary) hypertension; Z88.5 Allergy status to narcotic agent; Z79.84 Long term (current) use of oral hypoglycemic drugs; Z79.4 Long term (current) use of insulin
CPT/HCPCS: 71046; 80053; 83690; 84484; 85025; 93005; 93010; 99285-25; A9270

== ENCOUNTER 2024-10-28 13:53 | Emergency (ER) | payer MEDICARE, OTHER ==
[~2024-10-28] VITALS: Ht 165.1 cm; Wt 68.0 kg
[~2024-10-28 13:53] MED LIST changes: +CEFD300 PO; +GABA300 PO; +PANT40 PO; +VALA500 PO
[2024-10-28 14:32] LABS: BASOPHILS ABSOLUTE AUTO 0.02 K/mm3 (0.00-0.23); BASOPHILS PERCENT AUTO 0 % (0-2); EOSINOPHILS ABSOLUTE AUTO 0.06 K/mm3 (0.00-0.68); EOSINOPHILS PERCENT AUTO 1 % (0-6); Hematocrit 43.4 % (33.0-51.0); Hemoglobin 14.3 g/dL (11.5-16.0); IMMATURE GRAN ABSOLUTE AUTO 0.01 K/mm3 (0.00-0.10); IMMATURE GRAN PERCENT AUTO 0 % (0-1); LYMPHOCYTES ABSOLUTE AUTO 1.56 K/mm3 (0.84-5.20); LYMPHOCYTES PERCENT AUTO 23 % (21-46); MONOCYTES ABSOLUTE AUTO 0.55 K/mm3 (0.16-1.47); MONOCYTES PERCENT AUTO 8 % (4-13); Mean Corpuscular HGB 30.6 pg (26.0-34.0); Mean Corpuscular HGB Conc 32.9 g/dL (31.5-36.5); Mean Corpuscular Volume 93 fL (80-100); Mean Platelet Volume 9.1 fL (9.1-12.4); NEUTROPHILS ABSOLUTE AUTO 4.48 K/mm3 (1.96-9.15); NEUTROPHILS PERCENT AUTO 67 % (41-73); Platelet Count 190 K/mm3 (150-400); RDW Coefficient Variation 13.2 % (11.7-14.2); RDW Standard Deviation 45.1 fL (35.1-46.3); Red Blood Cell Count 4.67 M/mm3 (3.80-5.20); White Blood Cell Count 6.68 K/mm3 (4.00-11.30)
[2024-10-28 15:02] LABS: International Normalized Ratio 0.96; Prothrombin Time Results 10.3 Sec (9.7-11.5)
[2024-10-28 15:06] LABS: Albumin, Blood 3.4 g/dL (3.4-5.0); Albumin/Globulin Ratio 0.8 (0.8-1.8); Bilirubin, Total 0.4 mg/dL (0.1-1.0); Bun/Creatinine Ratio 22.9 (12.0-20.0); Calcium, Blood 9.5 mg/dL (8.5-10.1); Creatinine, Blood 0.66 mg/dL (0.40-1.00); Potassium, Blood 4.3 mmol/L (3.5-5.5); Total Protein, Blood 7.4 g/dL (6.4-8.2)
[2024-10-28 17:23] VITALS: BP 123/79
[2024-10-28 17:39] LABS: Source, Urine Clean Catch
[2024-10-28 17:42] LABS: Appearance, Urine Clear (Clear); Bilirubin, Urine Neg (Neg); Blood, Urine Neg (Neg); Color, Urine Yellow (P-Yellow); Glucose Qualitative, Urine Neg (Neg); Ketones, Urine Neg (Neg); Leukocyte Esterase, Urine Neg (Neg); Nitrite, Urine Neg (Neg); Protein, Urine Neg (Neg); Specific Gravity, Urine 1.015 (1.003-1.022); Urobilinogen, Urine NORM (Normal)
== END 2024-10-28 19:06 | disposition home or self-care (01) ==
LOC: ER 13:53
PROVIDERS: Student in an Organized Health Care Education/Training Program
DX: R29.818 Other symptoms and signs involving the nervous system (principal); Z88.5 Allergy status to narcotic agent; Z79.01 Long term (current) use of anticoagulants; Z79.4 Long term (current) use of insulin; Z79.899 Other long term (current) drug therapy; E11.9 Type 2 diabetes mellitus without complications; I10 Essential (primary) hypertension
CPT/HCPCS: 70450; 80053; 81003; 82947; 85025; 85610; 85730; 93005; 93010; 99284-25

== ENCOUNTER 2024-12-11 08:54 | Inpatient (IN) | payer MEDICARE, OTHER ==
[~2024-12-11] VITALS: Ht 167.6 cm; Wt 70.9 kg
[2024-12-11] VITALS (9 sets, daily range): BP systolic 103–138; BP diastolic 56–83
[2024-12-11] MEDS ORDERED: propofoL 100 ML IV ONE (08:56)
[2024-12-11] MEDS ORDERED: Mag Sulfate 1 GM/D5% 100ML 100 ML IV ONE (09:10)
[2024-12-11] MEDS ORDERED: propofoL 100 ML IV SCH ×2 (09:10→12:25)
[2024-12-11 09:16] LABS: BASOPHILS ABSOLUTE AUTO 0.02 K/mm3 (0.00-0.23); BASOPHILS PERCENT AUTO 0 % (0-2); EOSINOPHILS PERCENT AUTO 2 % (0-6); Hematocrit 45.6 % (33.0-51.0); Hemoglobin 14.5 g/dL (11.5-16.0); IMMATURE GRAN ABSOLUTE AUTO 0.03 K/mm3 (0.00-0.10); IMMATURE GRAN PERCENT AUTO 1 % (0-1); LYMPHOCYTES ABSOLUTE AUTO 2.66 K/mm3 (0.84-5.20); LYMPHOCYTES PERCENT AUTO 43 % (21-46); MONOCYTES ABSOLUTE AUTO 0.45 K/mm3 (0.16-1.47); MONOCYTES PERCENT AUTO 7 % (4-13); Mean Corpuscular HGB 30.5 pg (26.0-34.0); Mean Corpuscular HGB Conc 31.8 g/dL (31.5-36.5); Mean Corpuscular Volume 96 fL (80-100); Mean Platelet Volume 9.2 fL (9.1-12.4); NEUTROPHILS ABSOLUTE AUTO 2.98 K/mm3 (1.96-9.15); NEUTROPHILS PERCENT AUTO 48 % (41-73); Platelet Count 148 K/mm3 (150-400); RDW Coefficient Variation 14.1 % (11.7-14.2); RDW Standard Deviation 49.8 fL (35.1-46.3); Red Blood Cell Count 4.76 M/mm3 (3.80-5.20); White Blood Cell Count 6.24 K/mm3 (4.00-11.30)
[2024-12-11 09:22] LABS: Calcium, Ionized (POC) 1.21 mmol/L (1.10-1.46); Chloride (POC) 106 mmol/L (98-108); Creatinine (POC) 0.8 mg/dL (0.6-1.0); Glucose (ISTAT POC) 191 mg/dL (70-99); Hemoglobin (POC) 15.3 g/dL (12.0-16.0); Potassium (POC) 3.7 mmol/L (3.5-5.5); Sodium (POC) 139 mmol/L (135-148); Total CO2 (POC) 16 mmol/L (21-32)
[2024-12-11 09:35] LABS: Albumin, Blood 3.4 g/dL (3.4-5.0); Albumin/Globulin Ratio 0.9 (0.8-1.8); Bilirubin, Total 0.6 mg/dL (0.1-1.0); Bun/Creatinine Ratio 28.6 (12.0-20.0); Calcium, Blood 8.9 mg/dL (8.5-10.1); Creatinine, Blood 0.73 mg/dL (0.40-1.00); Globulin, Blood 3.7 g/dL (2.2-4.0); Potassium, Blood 3.5 mmol/L (3.5-5.5); Total Protein, Blood 7.1 g/dL (6.4-8.2)
[2024-12-11 09:55] LABS: Source, Urine Foley catheter
[2024-12-11] MEDS ORDERED: levETIRAcetam 1,000 MG in NS 100 ML IV ONE ×2 (09:55→17:20)
[2024-12-11 10:00] LABS: Appearance, Urine Clear (Clear); Bilirubin, Urine Neg (Neg); Blood, Urine Neg (Neg); Color, Urine Yellow (P-Yellow); Glucose Qualitative, Urine Neg (Neg); Ketones, Urine Neg (Neg); Leukocyte Esterase, Urine Neg (Neg); Nitrite, Urine Neg (Neg); Protein, Urine 2+ (Neg); Urobilinogen, Urine NORM (Normal)
[2024-12-11 10:06] LABS: Bacteria Few /hpf; Hyaline Casts 0-2 /lpf (0-2); Red Blood Cells, Urine 0-2 /hpf (0-2); Squamous Epithelial Cells Few /hpf (Few)
[2024-12-11] MEDS ORDERED: FOSAMAX70 MG PO (10:08)
[2024-12-11] MEDS ORDERED: ATORVASTATIN CA20 MG PO (10:09)
[2024-12-11 10:11] LABS: U Amphetamine Screen Not Detected; U Barbituate Screen Not Detected; U Benzodiazapine Screen Not Detected; U Buprenorphine Screen Not Detected; U Cannabinoids Screen Not Detected; U Cocaine Screen Not Detected; U Methadone Screen Not Detected; U Methamphetamine Screen Not Detected; U Opiates Screen Not Detected; U Oxycodone Screen Not Detected; U Phencyclidine Screen Not Detected
[2024-12-11] MEDS ORDERED: FLU VACC TS2024-25(6MOS UP)/PF 45 MCG/0.5 ML SYRINGE IM SCH (12:15)
[2024-12-11] MEDS ORDERED: Cetylpyridinium Chloride 1 EA MISC MT SCH (12:20)
[2024-12-11] MEDS ORDERED: Pantoprazole Sodium 40 MG Injection IV SCH (13:00)
[2024-12-11 13:52] LABS: BASOPHILS ABSOLUTE AUTO 0.02 K/mm3 (0.00-0.23); BASOPHILS PERCENT AUTO 0 % (0-2); EOSINOPHILS ABSOLUTE AUTO 0.04 K/mm3 (0.00-0.68); EOSINOPHILS PERCENT AUTO 1 % (0-6); Hemoglobin 12.6 g/dL (11.5-16.0); IMMATURE GRAN ABSOLUTE AUTO 0.02 K/mm3 (0.00-0.10); IMMATURE GRAN PERCENT AUTO 0 % (0-1); LYMPHOCYTES ABSOLUTE AUTO 0.95 K/mm3 (0.84-5.20); LYMPHOCYTES PERCENT AUTO 12 % (21-46); MONOCYTES ABSOLUTE AUTO 0.54 K/mm3 (0.16-1.47); MONOCYTES PERCENT AUTO 7 % (4-13); Mean Corpuscular HGB 30.9 pg (26.0-34.0); Mean Corpuscular HGB Conc 33.2 g/dL (31.5-36.5); Mean Corpuscular Volume 93 fL (80-100); Mean Platelet Volume 9.6 fL (9.1-12.4); NEUTROPHILS ABSOLUTE AUTO 6.35 K/mm3 (1.96-9.15); NEUTROPHILS PERCENT AUTO 80 % (41-73); Platelet Count 130 K/mm3 (150-400); RDW Coefficient Variation 14.1 % (11.7-14.2); RDW Standard Deviation 48.3 fL (35.1-46.3); Red Blood Cell Count 4.08 M/mm3 (3.80-5.20); White Blood Cell Count 7.92 K/mm3 (4.00-11.30)
[2024-12-11 13:56] LABS: Albumin, Blood 2.6 g/dL (3.4-5.0); Albumin/Globulin Ratio 0.9 (0.8-1.8); Bilirubin, Total 0.5 mg/dL (0.1-1.0); Calcium, Blood 7.3 mg/dL (8.5-10.1); Creatinine, Blood 0.55 mg/dL (0.40-1.00); Magnesium, Blood 1.9 mg/dL (1.6-2.4); Phosphorus, Blood 1.3 mg/dL (2.5-4.9); Potassium, Blood 3.3 mmol/L (3.5-5.5); Total Protein, Blood 5.6 g/dL (6.4-8.2)
[2024-12-11 13:57] LABS: Base Excess Venous -6.1 mmol/L; Bicarbonate Venous 19.7 mmol/L (24.0-30.0); PCO2 Venous 35.3 mmHg (38-42); pH Blood Venous 7.35 (7.34-7.37)
[2024-12-11] MEDS ORDERED: Hydrogen Peroxide 1.5 % Solution MT SCH (16:00)
[2024-12-11] MEDS ORDERED: Acetaminophen 325 MG TABLET PO PRN (17:05)
[2024-12-11] MEDS ORDERED: Potassium Phos/Sodium Phos 250 MG PACK PO SCH (18:00)
[2024-12-11] MEDS ORDERED: NS IV SCH (18:00)
[2024-12-11] MEDS ORDERED: CefTRIAXone Sodium 1,000 MG in NS 100 ML IV SCH (18:00)
[2024-12-11] MEDS ORDERED: Insulin Regular 100 Unit/ML 1ML Dose SC SCH (18:00)
[2024-12-11] MEDS ORDERED: POTASSIUM PHOSPHATE DIBASIC IV SCH (18:00)
[2024-12-11 18:41] LABS: Influenza A, PCR NEGATIVE (NEGATIVE); Influenza B, PCR NEGATIVE (NEGATIVE); Resp Syncytial Virus, PCR NEGATIVE (NEGATIVE); SARS-Cov-2 (COVID-19) PCR, MMC NEGATIVE (NEGATIVE)
[2024-12-11] MEDS ORDERED: levETIRAcetam 500 MG in NS 100 ML IV SCH (21:00)
[2024-12-12] VITALS (19 sets, daily range): BP systolic 101–140; BP diastolic 65–106
[2024-12-12] MEDS ORDERED: levETIRAcetam 1,000 MG in NS 100 ML IV SCH (01:00)
[2024-12-12 03:11] LABS: BASOPHILS ABSOLUTE AUTO 0.04 K/mm3 (0.00-0.23); BASOPHILS PERCENT AUTO 0 % (0-2); EOSINOPHILS ABSOLUTE AUTO 0.03 K/mm3 (0.00-0.68); EOSINOPHILS PERCENT AUTO 0 % (0-6); Hematocrit 44.2 % (33.0-51.0); Hemoglobin 14.5 g/dL (11.5-16.0); IMMATURE GRAN ABSOLUTE AUTO 0.04 K/mm3 (0.00-0.10); IMMATURE GRAN PERCENT AUTO 0 % (0-1); LYMPHOCYTES ABSOLUTE AUTO 2.56 K/mm3 (0.84-5.20); LYMPHOCYTES PERCENT AUTO 20 % (21-46); MONOCYTES ABSOLUTE AUTO 1.82 K/mm3 (0.16-1.47); MONOCYTES PERCENT AUTO 14 % (4-13); Mean Corpuscular HGB 30.6 pg (26.0-34.0); Mean Corpuscular HGB Conc 32.8 g/dL (31.5-36.5); Mean Corpuscular Volume 93 fL (80-100); Mean Platelet Volume 9.5 fL (9.1-12.4); NEUTROPHILS ABSOLUTE AUTO 8.59 K/mm3 (1.96-9.15); NEUTROPHILS PERCENT AUTO 66 % (41-73); Platelet Count 135 K/mm3 (150-400); RDW Coefficient Variation 14.6 % (11.7-14.2); RDW Standard Deviation 49.9 fL (35.1-46.3); Red Blood Cell Count 4.74 M/mm3 (3.80-5.20); White Blood Cell Count 13.08 K/mm3 (4.00-11.30)
[2024-12-12 05:15] LABS: Bun/Creatinine Ratio 27.7 (12.0-20.0); Creatinine, Blood 0.65 mg/dL (0.40-1.00); Potassium, Blood 4.8 mmol/L (3.5-5.5)
--- NOTE | 2024-12-12 07:39 | NUR ---
THIS RN ASSUMED CARE OF PT AT 0700. PT IS INTUBATED AND SEDATED, RASS OF -2, PT DOES LOCALIZE TO PAIN AND INTERMITTENTLY FOLLOWS COMMANDS. PT HEART RATE IS IN THE 60s, BLOOD PRESSURE STABLE AT 101/65 MAP OF 78, UNABLE TO ASSESS FOR CHEST PAIN DUE TO SEDATION. PT IS ON THE VENTILATOR SATTING >95%, SETTINGS ARE 375/30/5/16, NO OBJECTIVE S/S OF SHORTNESS OF BREATH. PT HAS KNOX CATHETER DRAINING TO GRAVITY. PROPOFOL IS AT 25MCG. PT DOES HAVE OG NOT HOOKED UP TO SUCTION. NO OTHER INTERVENTIONS AT THIS TIME. PLAN OF CARE CONTINUED.
[2024-12-12 08:29] LABS: Acinetobacter baumannii DNA Not Detected copy/mL (NOT DETECT); CTX-M Resistance Gene Not Detected; Enterobacter cloacae DNA Not Detected copy/mL (NOT DETECT); Escherichia coli DNA Detected Bin 10^5 copy/mL (NOT DETECT); Haemophilus influenzae DNA Not Detected copy/mL (NOT DETECT); Klebsiella aerogenes DNA Not Detected copy/mL (NOT DETECT); Klebsiella oxytoca DNA Not Detected copy/mL (NOT DETECT); Klebsiella pneumoniae DNA Not Detected copy/mL (NOT DETECT); Moraxella catarrhalis DNA Not Detected copy/mL (NOT DETECT); Proteus sp DNA Not Detected copy/mL (NOT DETECT); Pseudomonas aeruginosa DNA Not Detected copy/mL (NOT DETECT); Serratia marcescens DNA Not Detected copy/mL (NOT DETECT); Staphylococcus aureus DNA Not Detected copy/mL (NOT DETECT); Streptococcus agalactiae DNA Not Detected copy/mL (NOT DETECT); Streptococcus pneumoniae DNA Not Detected copy/mL (NOT DETECT); Streptococcus pyogenes DNA Not Detected copy/mL (NOT DETECT)
[2024-12-12 08:30] LABS: Adenovirus DNA Not Detected (NOT DETECT); Chlamydia pneumonia Not Detected (NOT DETECT); Human Coronavirus RNA Not Detected (NOT DETECT); Human Metapneumovirus RNA Not Detected (NOT DETECT); IMP Resistance Gene Not Detected; Influenza virus A RNA Not Detected (NOT DETECT); Influenza virus B RNA Not Detected (NOT DETECT); KPC Resistance Gene Not Detected; Legionella pneumophila Not Detected (NOT DETECT); Mycoplasma pneumoniae Not Detected (NOT DETECT); NDM Resistance Gene Not Detected; OXA-48-like Resistance Gene Not Detected; Parainfluenza virus RNA Not Detected (NOT DETECT); Respiratory syncytial Vir RNA Not Detected (NOT DETECT); Rhinovirus+Enterovirus RNA Not Detected (NOT DETECT); VIM Resistance Gene Not Detected
[2024-12-12] MEDS ORDERED: Enoxaparin 40 MG/0.4 ML SYR SC SCH (09:00)
--- NOTE | 2024-12-12 16:10 | NUR ---
PT WAS EXTUBATED TO 2L NC AT 1000, PT TOLERATED REALLY WELL, WAS BEDSIDE. HAD A CONVERSATION WITH PT ON PLAN GOING FORWARD. PT KNOX REMOVED AT 1430 PER . PT DID NOT PASS BEDSIDE SWALLOW EXAM, PT WILL NEED SPEECH THERAPY TO COME EVALUATE HER.
[2024-12-12] MEDS ORDERED: Lactated Ringer's 1,000 ML IV SCH ×2 (17:45)
--- NOTE | 2024-12-12 18:15 | NUR ---
PT SUMMARY PT WAS EXTUBATED AT 1000 ON 12/12/24 TO 2L NC. PT TOLERATED REALLY WELL. THIS AFTERNOON AROUND 1600 PT IS STILL VERY CONFUSED POSSIBLY FROM DEMENTIA, BUT REDIRECTABLE. PT AT BEDSIDE AND WANTED TO KNOW MORE ABOUT MRI, WAS CALLED AND SPOKE WITH FAMILY MEMBER, FAMILY MEMBER VERBALIZED UNDERSTANDING. PT HAD KNOX CATHETER REMOVED AROUND 1430 AND DID A BLADDER SCAN AROUND 1630 WITH A VOLUME OF ONLY 82. PT LACTICE ACID CAME BACK ELEVATED AT 3.4, WAS NOTIFIED AND ORDERED FLUIDS ON PT. PT FAILED BEDSIDE SWALLOW EVALUATION, SPEECH HAS BEEN ORDERED FOR A BARIUM SWALLOW STUDY. NO OTHER INTERVENTIONSA AT THIS TIME. PLAN OF CARE CONTINUED.
--- NOTE | 2024-12-12 20:30 | NUR ---
ASSUMED CARE PT IS ALERT AND ORIENTED TO SELF AND PLACE (HOSPITAL) ONLY. STATES "I DON'T KNOW" WHEN ASKED WHAT TOWN, YEAR, AND WHY SHE IS HERE. FOLLOWS COMMANDS AND ABLE TO MAKE NEEDS KNOWN. USING CALL LIGHT APPROPRIATELY. DENIES CP, SOB, AND NAUSEA. RESTING QUIETLY AT THIS TIME.
[2024-12-13 03:33] LABS: BASOPHILS ABSOLUTE AUTO 0.03 K/mm3 (0.00-0.23); BASOPHILS PERCENT AUTO 1 % (0-2); EOSINOPHILS ABSOLUTE AUTO 0.09 K/mm3 (0.00-0.68); EOSINOPHILS PERCENT AUTO 1 % (0-6); Hematocrit 43.1 % (33.0-51.0); Hemoglobin 13.9 g/dL (11.5-16.0); IMMATURE GRAN ABSOLUTE AUTO 0.02 K/mm3 (0.00-0.10); IMMATURE GRAN PERCENT AUTO 0 % (0-1); LYMPHOCYTES ABSOLUTE AUTO 1.46 K/mm3 (0.84-5.20); LYMPHOCYTES PERCENT AUTO 24 % (21-46); MONOCYTES ABSOLUTE AUTO 0.61 K/mm3 (0.16-1.47); MONOCYTES PERCENT AUTO 10 % (4-13); Mean Corpuscular HGB 30.8 pg (26.0-34.0); Mean Corpuscular HGB Conc 32.3 g/dL (31.5-36.5); Mean Corpuscular Volume 96 fL (80-100); Mean Platelet Volume 9.6 fL (9.1-12.4); NEUTROPHILS ABSOLUTE AUTO 4.01 K/mm3 (1.96-9.15); NEUTROPHILS PERCENT AUTO 65 % (41-73); Platelet Count 124 K/mm3 (150-400); RDW Coefficient Variation 14.6 % (11.7-14.2); RDW Standard Deviation 51.6 fL (35.1-46.3); Red Blood Cell Count 4.51 M/mm3 (3.80-5.20); White Blood Cell Count 6.22 K/mm3 (4.00-11.30)
[2024-12-13 03:53] LABS: Bun/Creatinine Ratio 21.2 (12.0-20.0); Calcium, Blood 8.5 mg/dL (8.5-10.1); Creatinine, Blood 0.61 mg/dL (0.40-1.00); Potassium, Blood 4.2 mmol/L (3.5-5.5)
[2024-12-13 05:52] VITALS: BP 115/79
[2024-12-13 07:48] VITALS: BP 123/81
[2024-12-13] MEDS ORDERED: Ampicillin Sod 2,000 MG in NS 100 ML IV SCH (07:54)
--- NOTE | 2024-12-13 11:19 | NUR ---
"Spiritual care Visit | Pt. request Pt. is awake in bed and welcomed my visit. Pt. is pleasant. Facilitated a life review and consider matters of brittany and belief. Listened with empathy and a calming presence. Pt. displays evidence of trust. Prayed with Pt. Pt. verbalized gratitude for the spirtual care visit."
--- NOTE | 2024-12-13 11:31 | NUR ---
STATUS UPDATE DR. YUSUF NOTIFIED OF URINE/SPUTUM CULTURE GROWTH. ABX UPDATED BY PROVIDER. PT ALERT, ORIENTED TO SELF, PLACE. REQUIRES REORIENTATION TO DATE/TIME/SITUATION - HX PROGRESSIVE DEMENTIA - PT SHORT TERM MEMORY AROUND 5 MINUTES. AFEBRILE. NSR 70S WITH FREQUENT PVCS, BP WNL. PT CONTINENT BUT DOES NEED PRE-EMPTIVE TOILETING. NPO CURRENTLY, COUGHS WITH SIPS OF WATER, FAMILY DENIES PREVIOUS ISSUES WITH EATING. BM THIS MORNING. UOP ADEQUATE. PIV 20G LWRIST. LR INFUSING AT 100ML/HR. SPEECH AND PT EVAL ORDERED. MEDICAL WITH TELE TX ORDERS. SAFETY, COMFORT, HYGIENE ADDRESSED. , GAGAN, UPDATED TO STATUS AND PLAN OF CARE. HE IS NOT FEELING WELL AND MAY TRY TO COME TO HOSPITAL THIS AFTERNOON, OTHERWISE AVAILABLE BY PHONE.
[2024-12-13 16:13] VITALS: BP 133/76
--- NOTE | 2024-12-13 17:29 | NUR ---
SHIFT SUMMARY PT ALERT TO SELF AND PLACE. REQUIRES REORIENTATION TO DATE/TIME/SITUATION EVERY FEW MINUTES. PT PLEASANT AND COOPERATIVE. AFEBRILE. HR NS WITH FREQUENT PVCS TO TRIGEMINY IN 70S. BP WNL. ROOM AIR. SMALL PELLET BOWEL MOVEMENT THIS MORNING. CONTINENT OF STOOL AND URINE. VOIDED 700 TOTAL. NPO WITH MEDS CRUSHED IN APPLESAUCE UNTIL FURTHER SPEECH EVAL, PT DOES NEED TO BE REMINDED OF THIS OFTEN. SKIN INTACT. PIV X1 TO LEFT WRIST. UP TO CHAIR TODAY. AMBULATES WELL WITH WALKER. URINE AND SPUTUM CULTURES RESULTED WITH GROWTH, AMPICILLIN STARTED, ROCEPHIN CONTINUED. LOVENOX FOR VTE. FAMILY UPDATED THIS SHIFT VIA TELEPHONE. SAFETY, COMFORT, HYGIENE ADDRESSED.
[2024-12-13 19:52] VITALS: BP 143/100
--- NOTE | 2024-12-13 20:06 | NUR ---
ASSUMPTION OF CARE: ASSUMED CARE OF PT AT 1915. PT MED STATUS. ALERT AND ORIENTED TO SELF AND LOCATION. ANSWERS QUESTIONS BUT IS FORGETFUL. FOLLOWS DIRECTION APPROPRIATELY. ON RA WITH SPO2 MID TO HIGH 90'S DENIES SOB. LUNGS CLEAR. DELIVERY TECHNICIAN IN PLACE, SR WITH FREQUENT PVC'S. SBP 140'S, DENIES CP/PRESSURE. ABLE TO VOID INTO BSC WITH MINIMAL ASSIST. PIV TO LW PATENT AND INFUSING LR AT 100 ML/HR. BED LOW AND LOCKED, CALL LIGHT IN REACH.
[2024-12-13 21:04] VITALS: BP 123/68
--- NOTE | 2024-12-13 21:15 | NUR ---
TRANSFER: PT TRANSFERRED TO [facility] FLOOR ROOM 357 BY WHEELCHAIR. ALL BELONGINGS SENT WITH PT.
[2024-12-13 23:42] VITALS: BP 144/72
[2024-12-13] MEDS ORDERED: NS 250 ML IV PRN (23:45)
[2024-12-14 03:40] VITALS: BP 136/83
[2024-12-14 05:15] LABS: BASOPHILS ABSOLUTE AUTO 0.02 K/mm3 (0.00-0.23); BASOPHILS PERCENT AUTO 0 % (0-2); EOSINOPHILS ABSOLUTE AUTO 0.13 K/mm3 (0.00-0.68); EOSINOPHILS PERCENT AUTO 3 % (0-6); Hematocrit 40.9 % (33.0-51.0); Hemoglobin 13.3 g/dL (11.5-16.0); IMMATURE GRAN ABSOLUTE AUTO 0.01 K/mm3 (0.00-0.10); IMMATURE GRAN PERCENT AUTO 0 % (0-1); LYMPHOCYTES ABSOLUTE AUTO 1.17 K/mm3 (0.84-5.20); LYMPHOCYTES PERCENT AUTO 24 % (21-46); MONOCYTES ABSOLUTE AUTO 0.44 K/mm3 (0.16-1.47); MONOCYTES PERCENT AUTO 9 % (4-13); Mean Corpuscular HGB 30.4 pg (26.0-34.0); Mean Corpuscular HGB Conc 32.5 g/dL (31.5-36.5); Mean Corpuscular Volume 93 fL (80-100); Mean Platelet Volume 9.6 fL (9.1-12.4); NEUTROPHILS ABSOLUTE AUTO 3.08 K/mm3 (1.96-9.15); NEUTROPHILS PERCENT AUTO 64 % (41-73); Platelet Count 133 K/mm3 (150-400); RDW Coefficient Variation 14.2 % (11.7-14.2); Red Blood Cell Count 4.38 M/mm3 (3.80-5.20); White Blood Cell Count 4.85 K/mm3 (4.00-11.30)
--- NOTE | 2024-12-14 05:32 | NUR ---
SHIFT SUMMARY TRANSFER FROM ICU AT 2100, VIA W/C. CONFUSED BUT EASY TO DIRECT. BED ALARM ON. IV FLUIDS LR/100ML/HR. PATIENT PULLED OUT HER IV, RESTARTED BY ASSOCIATE PROFESSOR OF MEDICINE. REMAIN NPO D/T FAILED SWALLOW EVAL. REMOVES TELE FREQUENTLY AND SETS OFF BED ALARM, DOES NOT UNDERSTAND CALL LIGHT. NO SEIZURE ACTIVITY NOTED TELE SR 88 WITH TRIGEMINY. FORGOT TO DO HER MIDNIGHT CBG. .
[2024-12-14 05:45] LABS: Bun/Creatinine Ratio 15.4 (12.0-20.0); Creatinine, Blood 0.65 mg/dL (0.40-1.00); Potassium, Blood 3.7 mmol/L (3.5-5.5)
[2024-12-14 07:49] VITALS: BP 134/55
--- NOTE | 2024-12-14 11:47 | NUR ---
Spiritual Care Visit. Pt. is awake in bed and welcomes my visit. Pt. quickly displayed evidence of being pleasantly confused. Pt. verbalized that she had no family in the area or visitors. Listen with empathy without trying to confirm whether what she was saying reflected the truth. Considered matters of brittany and belief. Prayed with Pt. Pt. verbalized gratitude for the spritual care visit.
--- NOTE | 2024-12-14 16:05 | NUR ---
PT HAD A SWALLOQ EVAL DONE TODAY. SEE CHART FOR DETAILS. PT HAD NO C/O PAIN DURING THE SHIFT OR SOB, CHEST PAIN. PT HAS REMAINED ON BED ALARMS ALL SHIFT DUE TO FORGETFULNESS AND LEAVING THE BED W/O CALLING FOR ASSISTANCE.
[2024-12-14 16:10] VITALS: BP 154/111
[2024-12-14 16:18] VITALS: BP 145/70
[2024-12-14 19:13] VITALS: BP 138/79
[2024-12-14] MEDS ORDERED: Insulin Human Lispro 100 Units/ML 3ML Syringe SC SCH (21:00)
[2024-12-15 00:34] VITALS: BP 144/78
[2024-12-15 04:37] VITALS: BP 131/96
--- NOTE | 2024-12-15 07:57 | NUR ---
SHIFT SUMMARY PT HAS BEEN RESTING IN BED COMFORTABLY OVERNIGHT. SHE HAS BEEN AOX1, TO SELF. SHE HAS ALSO BEEN IMPULSIVE. PT HAS GOTTEN OUT OF BED SEVERAL TIMES WITHOUT USING CALL LIGHT. EDUCATION HAS BEEN REINFORCED SEVERAL TIMES. BED HAS BEEN LOCKED IN LOWEST POSITION WITH BED ALARM ENGAGED. OTHERWISE, PT IS PLEASANT AND COOPERATIVE. NO ACUTE EVENTS OVERNIGHT.
[2024-12-15 07:59] VITALS: BP 140/91
--- NOTE | 2024-12-15 09:03 | NUR ---
pt is sba to bsc, awake a/ox1-2, pleasant and cooperative with care, follows commands well, denies pain, lungs are clear t/o, resp even and unlabored on r/a, hr reg irreg, tele in place, see strip, no edema noted, ppp+1, cap refill< 3 sec, vs stable, afebrile, piv to rfa site is clear and patent, btx4 abd flat soft nontender, voids via bsc, skin c/w/d, majerald, weak, states she feels dizzy even while laying, can't define further, kolby, call light in reach.
[2024-12-15 11:50] VITALS: BP 146/92
[2024-12-15] MEDS ORDERED: VISBIOME 112.51 EACH PO (14:22)
[2024-12-15] MEDS ORDERED: AMOX875 PO (14:23)
--- NOTE | 2024-12-15 15:41 | NUR ---
Pt is being discharged to home, spouce here to pick her up, went over her instructions with him, new medications sent to [facility], iv removed intact, leaving via wheelchair with all her belongings.
== END 2024-12-15 15:35 | disposition home health service (06) | DRG 100 ==
LOC: ER 08:54 → ERHOLD 13:25 → ICUE 13:25 → EDBEDREQSVC 13:27 → ICUE 15:22 → MEDS 12-13 21:02
PROVIDERS: Emergency Medicine; Student in an Organized Health Care Education/Training Program; ADMIT Family Medicine
PROC: 5A1945Z Respiratory Ventilation, 24-96 Consecutive Hours (ICD-10-PCS; principal; 2024-12-10)
DX: G40.909 Epilepsy, unspecified, not intractable, without status epilepticus (principal); G92.8 Other toxic encephalopathy; J96.01 Acute respiratory failure with hypoxia; J15.5 Pneumonia due to Escherichia coli; N39.0 Urinary tract infection, site not specified; E87.21 Acute metabolic acidosis; F03.90 Unspecified dementia, unspecified severity, without behavioral disturbance, psychotic disturbance, mood disturbance, and anxiety; I10 Essential (primary) hypertension; E11.9 Type 2 diabetes mellitus without complications; Z88.5 Allergy status to narcotic agent; Z79.84 Long term (current) use of oral hypoglycemic drugs; Z79.83 Long term (current) use of bisphosphonates; Z79.899 Other long term (current) drug therapy; Z98.51 Tubal ligation status; Z90.49 Acquired absence of other specified parts of digestive tract; M81.0 Age-related osteoporosis without current pathological fracture; E83.39 Other disorders of phosphorus metabolism; B97.89 Other viral agents as the cause of diseases classified elsewhere
CPT/HCPCS: 0241U; 0528U; 36415; 51702; 70450; 71045; 74230; 80047; 80048; 80053; 81001; 82803; 82947; 83036; 83605; 83735; 84100; 84145; 84146; 84484; 85014; 85025; 87040; 87070; 87077; 87086; 87186; 87205; 92526; 92610; 92611; 93005; 93010; 94002; 94003; 96365; 96367; 97116; 97162; 99291-25; A9270; J0290; J0696; J1650; J1953; J2470; J2704; J3475; J7050; J7120

== ENCOUNTER 2025-05-18 10:14 | Inpatient (IN) | payer MEDICARE, OTHER ==
[~2025-05-18] VITALS: Ht 162.6 cm; Wt 61.9 kg
[~2025-05-18 10:14] MED LIST changes: +AMOX875 PO; +ATORVASTATIN CA20 MG PO; +FOSAMAX70 MG PO; +VISBIOME 112.51 EACH PO
[2025-05-18] MEDS ORDERED: Ondansetron HCl 2 MG / ML 2ML Vial IV ONE (11:25)
[2025-05-18 11:43] LABS: BASOPHILS ABSOLUTE AUTO 0.03 K/mm3 (0.00-0.23); BASOPHILS PERCENT AUTO 0 % (0-2); EOSINOPHILS ABSOLUTE AUTO 0.03 K/mm3 (0.00-0.68); EOSINOPHILS PERCENT AUTO 0 % (0-6); Hematocrit 46.7 % (33.0-51.0); Hemoglobin 14.6 g/dL (11.5-16.0); IMMATURE GRAN ABSOLUTE AUTO 0.03 K/mm3 (0.00-0.10); IMMATURE GRAN PERCENT AUTO 0 % (0-1); LYMPHOCYTES ABSOLUTE AUTO 2.03 K/mm3 (0.84-5.20); LYMPHOCYTES PERCENT AUTO 23 % (21-46); MONOCYTES ABSOLUTE AUTO 0.56 K/mm3 (0.16-1.47); MONOCYTES PERCENT AUTO 6 % (4-13); Mean Corpuscular HGB Conc 31.3 g/dL (31.5-36.5); Mean Corpuscular Volume 99 fL (80-100); NEUTROPHILS ABSOLUTE AUTO 6.09 K/mm3 (1.96-9.15); NEUTROPHILS PERCENT AUTO 70 % (41-73); NRBC ABSOLUTE 0.00 K/mm3 (0.00-0.02); NRBC Auto 0.0 /100 WBC (0.0-0.2); Platelet Count 133 K/mm3 (150-400); RDW Coefficient Variation 13.3 % (11.7-14.2); RDW Standard Deviation 48.8 fL (35.1-46.3)
[2025-05-18 11:57] LABS: Alanine Aminotransfer (ALT/SGP 15.0 U/L (12-78); Albumin, Blood 3.2 g/dL (3.4-5.0); Albumin/Globulin Ratio 0.8 (0.8-1.8); Anion Gap 7.0 mmol/L (3-11); Aspartate Aminotrans (AST/SGOT 11.0 U/L (12-37); Bilirubin, Total 0.8 mg/dL (0.1-1.0); Blood Urea Nitrogen 46.0 mg/dL (8-24); CO2, Blood 27.0 mmol/L (21-32); Calcium, Blood 9.5 mg/dL (8.5-10.1); Chloride, Blood 122.0 mmol/L (98-108); Creatinine, Blood 0.81 mg/dL (0.40-1.00); Globulin, Blood 4.0 g/dL (2.2-4.0); Glucose, Blood 520.0 mg/dL (70-99); Potassium, Blood 4.5 mmol/L (3.5-5.5); Sodium, Blood 151.0 mmol/L (136-145); Total Protein, Blood 7.2 g/dL (6.4-8.2)
[2025-05-18 15:04] LABS: pH Blood Venous 7.40 (7.34-7.37)
[2025-05-18 16:08] LABS: Source, Urine Straight Cath
[2025-05-18 16:11] LABS: Bilirubin, Urine Neg (Neg); Color, Urine Yellow (P-Yellow); Glucose Qualitative, Urine 4+ (Neg); Ketones, Urine 2+ (Neg); Leukocyte Esterase, Urine Neg (Neg); Protein, Urine 1+ (Neg); Specific Gravity, Urine 1.020 (1.003-1.022); Urobilinogen, Urine NORM (Normal)
[2025-05-18] MEDS ORDERED: NS 1,000 ML IV SCH (16:15)
[2025-05-18 16:30] LABS: Influenza A, PCR NEGATIVE (NEGATIVE); Influenza B, PCR NEGATIVE (NEGATIVE); Resp Syncytial Virus, PCR NEGATIVE (NEGATIVE); SARS-Cov-2 (COVID-19) PCR, MMC NEGATIVE (NEGATIVE)
[2025-05-18 16:31] LABS: Magnesium, Blood 2.3 mg/dL (1.6-2.4); Phosphorus, Blood 3.6 mg/dL (2.5-4.9); Thyroid Stimulating Hormone 1.62 uIU/mL (0.360-4.800)
[2025-05-18] MEDS ORDERED: Ondansetron HCl 2 MG / ML 2ML Vial IV PRN (17:05)
[2025-05-18 17:58] LABS: Red Blood Cells, Urine 0-2 /hpf (0-2); White Blood Cells, Urine 0-2 /hpf (0-5)
[2025-05-18] MEDS ORDERED: Insulin Regular 100 UNIT/ML 10ML Vial SC SCH (18:00)
[2025-05-18 18:47] LABS: Anion Gap 6.0 mmol/L (3-11); Blood Urea Nitrogen 38.0 mg/dL (8-24); CO2, Blood 25.0 mmol/L (21-32); Calcium, Blood 8.8 mg/dL (8.5-10.1); Chloride, Blood 123.0 mmol/L (98-108); Creatinine, Blood 0.73 mg/dL (0.40-1.00); Glucose, Blood 419.0 mg/dL (70-99); Potassium, Blood 4.2 mmol/L (3.5-5.5); Sodium, Blood 150.0 mmol/L (136-145)
[2025-05-18 20:49] VITALS: BP 129/86
[2025-05-18 21:58] LABS: Anion Gap 7.0 mmol/L (3-11); Blood Urea Nitrogen 36.0 mg/dL (8-24); CO2, Blood 25.0 mmol/L (21-32); Calcium, Blood 9.0 mg/dL (8.5-10.1); Chloride, Blood 122.0 mmol/L (98-108); Creatinine, Blood 0.7 mg/dL (0.40-1.00); Glucose, Blood 413.0 mg/dL (70-99); Potassium, Blood 3.9 mmol/L (3.5-5.5); Sodium, Blood 150.0 mmol/L (136-145)
[2025-05-18] MEDS ORDERED: Insulin Regular 100 UNIT/ML 10ML Vial SC ONE (22:50)
--- NOTE | 2025-05-19 03:08 | NUR ---
SHIFT SUMMARY PATIENT APPEARS TO BE RESTING COMFORTABLY AT THIS TIME. SHE PULLED OUT HER IV EARLIER IN THE NIGHT. NEW IV WAS PLACED AND .45NS IS INFUSING WITHOUT COMPLICATIONS. PATIENT IS CONFUSED AND VERY FORGETFUL. BED ALARM IS SET. SAFETY PRECAUTIONS ARE BEING MAINTAINED.
[2025-05-19 03:22] VITALS: BP 118/78
[2025-05-19] MEDS ORDERED: Insulin Regular 100 UNIT/ML 10ML Vial SC SCH (07:30)
[2025-05-19 07:59] VITALS: BP 126/75
[2025-05-19] MEDS ORDERED: Enoxaparin 40 MG/0.4 ML SYR SC SCH (09:00)
[2025-05-19 09:58] LABS: BASOPHILS ABSOLUTE AUTO 0.03 K/mm3 (0.00-0.23); BASOPHILS PERCENT AUTO 0 % (0-2); EOSINOPHILS ABSOLUTE AUTO 0.17 K/mm3 (0.00-0.68); EOSINOPHILS PERCENT AUTO 3 % (0-6); Hematocrit 51.2 % (33.0-51.0); Hemoglobin 15.5 g/dL (11.5-16.0); IMMATURE GRAN ABSOLUTE AUTO 0.04 K/mm3 (0.00-0.10); IMMATURE GRAN PERCENT AUTO 1 % (0-1); LYMPHOCYTES ABSOLUTE AUTO 1.62 K/mm3 (0.84-5.20); LYMPHOCYTES PERCENT AUTO 23 % (21-46); MONOCYTES ABSOLUTE AUTO 0.38 K/mm3 (0.16-1.47); MONOCYTES PERCENT AUTO 6 % (4-13); Mean Corpuscular HGB Conc 30.3 g/dL (31.5-36.5); Mean Corpuscular Volume 102 fL (80-100); NEUTROPHILS ABSOLUTE AUTO 4.67 K/mm3 (1.96-9.15); NEUTROPHILS PERCENT AUTO 68 % (41-73); NRBC ABSOLUTE 0.00 K/mm3 (0.00-0.02); NRBC Auto 0.0 /100 WBC (0.0-0.2); Platelet Count 107 K/mm3 (150-400); RDW Coefficient Variation 13.3 % (11.7-14.2); RDW Standard Deviation 50.7 fL (35.1-46.3)
[2025-05-19 10:21] LABS: Alanine Aminotransfer (ALT/SGP 16.0 U/L (12-78); Albumin, Blood 3.2 g/dL (3.4-5.0); Albumin/Globulin Ratio 0.8 (0.8-1.8); Anion Gap 8.0 mmol/L (3-11); Aspartate Aminotrans (AST/SGOT 15.0 U/L (12-37); Bilirubin, Total 1.0 mg/dL (0.1-1.0); Blood Urea Nitrogen 28.0 mg/dL (8-24); CO2, Blood 25.0 mmol/L (21-32); Calcium, Blood 8.7 mg/dL (8.5-10.1); Chloride, Blood 120.0 mmol/L (98-108); Creatinine, Blood 0.55 mg/dL (0.40-1.00); Globulin, Blood 4.2 g/dL (2.2-4.0); Glucose, Blood 276.0 mg/dL (70-99); Magnesium, Blood 2.2 mg/dL (1.6-2.4); Potassium, Blood 3.8 mmol/L (3.5-5.5); Sodium, Blood 149.0 mmol/L (136-145); Total Protein, Blood 7.4 g/dL (6.4-8.2)
[2025-05-19 15:09] VITALS: BP 96/82
--- NOTE | 2025-05-19 18:24 | NUR ---
SHIFT SUMMARY PATIENT CONFUSED. NEEDING REDIRECTION AND SIMPLE COMMANDS. PATIENT BATHED. ATTEMPTED TO COMB OUT MATTED HAIR. REQUESTING US TO STOP. STATES FAMILY WILL WORK ON THAT. HAIR MATTED TO TOP OF HEAD. NA TRENDING DOWN. BLOOD SUGAR CONTINUES TO BE ELEVATED. AT BEDSIDE MOST OF THE DAY. PATIENT SHOWERED AFTER ATTEMPTED TO COMB OUT MATTING. CASE MANAGEMENT INVOLVED FOR DISCHARGE PLAN. CONCERNS ABOUT CONFUSION, MEDICATIONS AND DIABETIC MANAGEMENT.
[2025-05-19 19:18] VITALS: BP 106/69
[2025-05-19] MEDS ORDERED: Insulin Glargine-Yfgn 100 Unit/mL 3 ML SYR SC SCH (21:00)
[2025-05-19] MEDS ORDERED: Lactobacil 2-S.Thermo-Bifido 1 1 Cap PO SCH (21:00)
[2025-05-20] VITALS (36 sets, daily range): BP systolic 78–136; BP diastolic 52–114
--- NOTE | 2025-05-20 06:42 | NUR ---
STAFFING RECRUITER SUMMARY PT VSS, EXCEPT SLIGHTLY ELEVATED BP. PT IS A&OX1 (TO PERSON ONLY), BUT IS COMPLIANT WITH ASSESSMENTS AND MEDICATIONS. PT CONTINUES TO HAVE POOR APPETITE. REQUIRES CONSTANT REMINDERS TO EAT AND DRINK. PT HAS BEEN ASLEEP FOR MOST OF THE SHIFT. PT WILL GET UP INTERMITTENTLY TO USE RESTROOM. PT IS CONFUSED AT TIMES AND WILL TRY TO GET UP OUT OF BED W/O ASSISTANCE. BED/CHAIR ALARM ON FOR SAFETY. PT WILL ALSO VOICE NEEDS OUT LOUD, BUT DOES NOT USE CALL LIGHT. RN POSITIONED OUTSIDE ROOM THROUGHOUT SHIFT TO TEND TO PT'S NEEDS. PT THREW UP ONCE. ZOFRAN ADMINISTERED ONCE. HOWEVER, PT IS FORGETFUL AND DOES NOT REMEMBER THROWING UP. BED RAILS UP X 2, BED IN LOWEST POSITION, BED WHEELS LOCKED, PERSONAL BELONGINGS AND CALL LIGHT WITHIN REACH, AND RN POSITIONED OUTSIDE ROOM FOR SAFETY.
[2025-05-20] MEDS ORDERED: Fluticasone 0.05% Nasal Spray SCH (09:00)
[2025-05-20] MEDS ORDERED: Insulin Human Lispro 100 Units/ML 3ML Syringe SC ONE ×2 (09:00→10:00)
[2025-05-20] MEDS ORDERED: Insulin Glargine-Yfgn 100 Unit/mL 3 ML SYR SC ONE (09:00)
[2025-05-20] MEDS ORDERED: Phenol/Sodium Phenolate Oral Spray 180 ML MM PRN (09:45)
[2025-05-20 10:03] LABS: BASOPHILS ABSOLUTE AUTO 0.05 K/mm3 (0.00-0.23); BASOPHILS PERCENT AUTO 0 % (0-2); EOSINOPHILS ABSOLUTE AUTO 0.01 K/mm3 (0.00-0.68); EOSINOPHILS PERCENT AUTO 0 % (0-6); Hematocrit 51.5 % (33.0-51.0); Hemoglobin 15.6 g/dL (11.5-16.0); IMMATURE GRAN ABSOLUTE AUTO 0.09 K/mm3 (0.00-0.10); IMMATURE GRAN PERCENT AUTO 1 % (0-1); LYMPHOCYTES ABSOLUTE AUTO 1.65 K/mm3 (0.84-5.20); LYMPHOCYTES PERCENT AUTO 9 % (21-46); MONOCYTES ABSOLUTE AUTO 0.79 K/mm3 (0.16-1.47); MONOCYTES PERCENT AUTO 4 % (4-13); Mean Corpuscular HGB Conc 30.3 g/dL (31.5-36.5); Mean Corpuscular Volume 103 fL (80-100); NEUTROPHILS ABSOLUTE AUTO 15.98 K/mm3 (1.96-9.15); NEUTROPHILS PERCENT AUTO 86 % (41-73); NRBC ABSOLUTE 0.00 K/mm3 (0.00-0.02); NRBC Auto 0.0 /100 WBC (0.0-0.2); Platelet Count 101 K/mm3 (150-400); RDW Coefficient Variation 13.1 % (11.7-14.2); RDW Standard Deviation 49.8 fL (35.1-46.3)
[2025-05-20 10:26] LABS: BASOPHILS ABSOLUTE AUTO 0.03 K/mm3 (0.00-0.23); BASOPHILS PERCENT AUTO 0 % (0-2); EOSINOPHILS ABSOLUTE AUTO 0.00 K/mm3 (0.00-0.68); EOSINOPHILS PERCENT AUTO 0 % (0-6); Hematocrit 45.0 % (33.0-51.0); Hemoglobin 14.2 g/dL (11.5-16.0); IMMATURE GRAN ABSOLUTE AUTO 0.08 K/mm3 (0.00-0.10); IMMATURE GRAN PERCENT AUTO 1 % (0-1); LYMPHOCYTES ABSOLUTE AUTO 1.46 K/mm3 (0.84-5.20); LYMPHOCYTES PERCENT AUTO 9 % (21-46); MONOCYTES ABSOLUTE AUTO 0.61 K/mm3 (0.16-1.47); MONOCYTES PERCENT AUTO 4 % (4-13); Mean Corpuscular HGB Conc 31.6 g/dL (31.5-36.5); NEUTROPHILS ABSOLUTE AUTO 14.36 K/mm3 (1.96-9.15); NEUTROPHILS PERCENT AUTO 87 % (41-73); NRBC ABSOLUTE 0.00 K/mm3 (0.00-0.02); NRBC Auto 0.0 /100 WBC (0.0-0.2); Platelet Count 137 K/mm3 (150-400); RDW Coefficient Variation 13.1 % (11.7-14.2); RDW Standard Deviation 46.4 fL (35.1-46.3)
[2025-05-20 10:28] LABS: Mean Corpuscular Volume 97 fL (80-100)
[2025-05-20 10:42] LABS: Anion Gap 10.0 mmol/L (3-11); Blood Urea Nitrogen 34.0 mg/dL (8-24); CO2, Blood 24.0 mmol/L (21-32); Calcium, Blood 9.0 mg/dL (8.5-10.1); Chloride, Blood 109.0 mmol/L (98-108); Creatinine, Blood 0.5 mg/dL (0.40-1.00); Glucose, Blood 524.0 mg/dL (70-99); Potassium, Blood 3.7 mmol/L (3.5-5.5); Sodium, Blood 139.0 mmol/L (136-145)
--- NOTE | 2025-05-20 10:56 | NUR ---
800 FOUND PATIENT TO BE VERY LATHARGIC AND DIFFICULT TO ARROUSE. WHEN AWAKE PATIENT STATES SHE IS VERY CONFUSED AND IS ONLY ALERT TO SELF. THEN QUICKLY FALLS BACK ASLEEP. CBG HIGH GAVE ORDERED INSULIN AND STOPPED D5 AT 50. CALL[address] DR[address] YUSUF NEW ORDER RECEIVED. PHYSICAL THERAPY WAS ABLE TO WORK WITH PATIENT BRIEFLY. RECHECK CBG GRATER THEN 500. DR NOTIFIED AND NEW ORDERS RECEIVED. DR IN ROOM AT 1025 WITH NEW ORDERS. 1050 DR NOTIFIED OF NEW LAB RESULTS AND NEW ORDER RECEIVED.
[2025-05-20] MEDS ORDERED: Insulin Human Lispro 100 Units/ML 3ML Syringe SC SCH (11:30)
[2025-05-20] MEDS ORDERED: Insulin Human Regular 100 UNIT in NS 100 ML IV SCH (12:10)
--- NOTE | 2025-05-20 14:00 | NUR ---
TRANSFERED PATIENT TO ICU PER DR ELKINS. CLAIRE AND WITH. GAVE BEDSIDE REPORT TO ICU NURSE.
[2025-05-20 15:37] LABS: Anion Gap 12.0 mmol/L (3-11); Blood Urea Nitrogen 37.0 mg/dL (8-24); CO2, Blood 24.0 mmol/L (21-32); Calcium, Blood 9.0 mg/dL (8.5-10.1); Chloride, Blood 111.0 mmol/L (98-108); Creatinine, Blood 0.6 mg/dL (0.40-1.00); Glucose, Blood 322.0 mg/dL (70-99); Potassium, Blood 3.4 mmol/L (3.5-5.5); Sodium, Blood 144.0 mmol/L (136-145)
--- NOTE | 2025-05-20 17:55 | NUR ---
SHIFT SUMMARY PT REMAINS ALERT, ORIENTED TO ALL EXCEPT CURRENT SITUATION. SHE IS AWARE THAT SHE IS IN THE HOSPITAL BUT IS UNSURE WHY. ABLE TO FOLLOW COMMANDS, MAKE PURPOSEFUL MOVEMENTS, AND MAKE NEEDS KNOWN. AFEBRILE AND DENIES PAIN. ATTEMPTED OOB ONCE, SBA TO BEDSIDE COMMODE. USES WALKER AT HOME. CONTINUOUS CARDIAC MONITORING SHOWS SR-ST. ONE 5 BEAT RUN OF VTACH AT 1630 SAVED TO CHART. ON RA c O2 SATURATION > 92%. MED FLOOR RN REPORTS ONE EPISODE OF EMESIS PRIOR TO TRANSFER TO ICU, NO EPISODES SINCE AND PT DENIES NAUSEA. ONE VOID IN BSC. PG TO DALLIN INFUSING INSULIN AT 2 U/HR, 1/2 NS AT 200 mL HR. LABS DRAWN AT 1745, KCL INFUSING COMPLETED AT 1756. WILL CONTINUE TO MONITOR AND REPORT TO ONCOMING RN.
[2025-05-20 18:45] LABS: Anion Gap 1.0 mmol/L (3-11); Blood Urea Nitrogen 32.0 mg/dL (8-24); CO2, Blood 24.0 mmol/L (21-32); Calcium, Blood 8.2 mg/dL (8.5-10.1); Chloride, Blood 117.0 mmol/L (98-108); Creatinine, Blood 0.47 mg/dL (0.40-1.00); Glucose, Blood 175.0 mg/dL (70-99); Potassium, Blood 4.3 mmol/L (3.5-5.5); Sodium, Blood 138.0 mmol/L (136-145)
[2025-05-20 21:56] LABS: Anion Gap 5.0 mmol/L (3-11); Blood Urea Nitrogen 27.0 mg/dL (8-24); CO2, Blood 22.0 mmol/L (21-32); Calcium, Blood 8.2 mg/dL (8.5-10.1); Chloride, Blood 116.0 mmol/L (98-108); Creatinine, Blood 0.51 mg/dL (0.40-1.00); Glucose, Blood 170.0 mg/dL (70-99); Potassium, Blood 3.5 mmol/L (3.5-5.5); Sodium, Blood 139.0 mmol/L (136-145)
[2025-05-21] VITALS (41 sets, daily range): BP systolic 79–149; BP diastolic 55–137
[2025-05-21 01:50] LABS: Anion Gap 7.0 mmol/L (3-11); Blood Urea Nitrogen 24.0 mg/dL (8-24); CO2, Blood 25.0 mmol/L (21-32); Calcium, Blood 8.1 mg/dL (8.5-10.1); Chloride, Blood 115.0 mmol/L (98-108); Creatinine, Blood 0.56 mg/dL (0.40-1.00); Glucose, Blood 217.0 mg/dL (70-99); Potassium, Blood 4.0 mmol/L (3.5-5.5); Sodium, Blood 143.0 mmol/L (136-145)
[2025-05-21 03:43] LABS: BASOPHILS ABSOLUTE AUTO 0.02 K/mm3 (0.00-0.23); BASOPHILS PERCENT AUTO 0 % (0-2); EOSINOPHILS ABSOLUTE AUTO 0.08 K/mm3 (0.00-0.68); EOSINOPHILS PERCENT AUTO 1 % (0-6); Hematocrit 30.0 % (33.0-51.0); Hemoglobin 9.7 g/dL (11.5-16.0); IMMATURE GRAN ABSOLUTE AUTO 0.04 K/mm3 (0.00-0.10); IMMATURE GRAN PERCENT AUTO 0 % (0-1); LYMPHOCYTES ABSOLUTE AUTO 2.02 K/mm3 (0.84-5.20); LYMPHOCYTES PERCENT AUTO 19 % (21-46); MONOCYTES ABSOLUTE AUTO 0.55 K/mm3 (0.16-1.47); MONOCYTES PERCENT AUTO 5 % (4-13); Mean Corpuscular HGB Conc 32.3 g/dL (31.5-36.5); Mean Corpuscular Volume 97 fL (80-100); NEUTROPHILS ABSOLUTE AUTO 7.75 K/mm3 (1.96-9.15); NEUTROPHILS PERCENT AUTO 74 % (41-73); NRBC ABSOLUTE 0.00 K/mm3 (0.00-0.02); NRBC Auto 0.0 /100 WBC (0.0-0.2); Platelet Count 87 K/mm3 (150-400); RDW Coefficient Variation 13.5 % (11.7-14.2); RDW Standard Deviation 47.5 fL (35.1-46.3)
[2025-05-21 03:56] LABS: Anion Gap 6.0 mmol/L (3-11); Blood Urea Nitrogen 21.0 mg/dL (8-24); CO2, Blood 25.0 mmol/L (21-32); Calcium, Blood 7.7 mg/dL (8.5-10.1); Chloride, Blood 116.0 mmol/L (98-108); Creatinine, Blood 0.52 mg/dL (0.40-1.00); Glucose, Blood 210.0 mg/dL (70-99); Potassium, Blood 3.8 mmol/L (3.5-5.5); Sodium, Blood 143.0 mmol/L (136-145)
--- NOTE | 2025-05-21 04:51 | NUR ---
SHIFT SUMMARY PATIENT SLEPT THROUGH SHIFT. PATIENT DID GET UP AND USE BEDSIDE COMMODE WITH ASSISTS FROM NURSE. PATIENT VERY CONFUSED AND STATES " I AM SO CONFUSED". PATIENT KNOWS NAME AND AND SOMETIMES REMEMBERS SHE IS IN HOSPITAL BUT DOES KNOW WHY. LUNGS BILATERALY CLEAR. SBP 100-120'S AND HR IN THE 80-90'S. PATIENT ON ROOM AIR. HAS POWERGLIDE IN DALLIN AND LEFT AC PERIPHERAL IV. PATIENT'S HAIR IS MATTED TO HEAD. NURSES PUT SHOWER CAP ON HEAD AND THEN APPLIED CONDITIONER AND WAS ABLE TO COMB OUT SOME. PATIENT SLEPT THORUGH THE COMBING PROCESS. PATIENT STILL HAS A LARGE AMOUNT OF MATTED HAIR. PICS IN CHART. PATIENT HAS BED ALARM ON DUE TO EXITING THE BED WITHOUT CALLING FOR HELP. CALL LIGHT WITHIN REACH.
[2025-05-21] MEDS ORDERED: Insulin Human Lispro 100 Units/ML 3ML Syringe SC SCH ×2 (08:00)
--- NOTE | 2025-05-21 09:06 | NUR ---
PROVIDER NOTIFICATION NOTIFIED DR. YUSUF WHILE AT BEDSIDE - PT UNABLE TO SWALLOW PILLS OR EAT BREAKFAST DUE TO "REALLY SORE THROAT" WITH NO RELIEF FROM THROAT SPRAY AND PT REPORTS SHE "DOESN'T REMEMBER HOW TO SWALLOW". AUGMENTIN AND PROBIOTIC NOT ABLE TO BE ADMINISTERED. NO NUTRITIONAL INTAKE FROM BREAKFAST. MENTATION QUITE DIFFERENT FROM PREVIOUS ADMISSION IN NOVEMBER. AT THAT TIME, PT REQUIRED REORIENTATION TO SITUATION EVERY 10-15 MINUTES BUT WAS PLEASANT AND WITHOUT SIGNS OF ANY DISTRESS. SHE WAS ABLE TO EXPRESS THAT SHE HAS MEMORY TROUBLE AND COULD RECOGNIZE AND EXPRESS NEEDS. THIS MORNING, PT APPEARS CONFUSED AND EXHIBITS SOME SIGNS OF DISTRESS AND WORRY. REPEATEDLY STATED, "I'M SO CONFUSED", "I DON'T KNOW WHAT'S GOING ON", AND "I DON'T KNOW WHAT I AM SUPPOSED TO BE DOING". HAIR APPEARS UNKEMPT AND IS SEVERELY MATTED TO HER SCALP. IT SEEMS THAT STAFF HAS SUCCESSFULLY COMBED OUT A SMALL AREA ON THE LEFT SIDE. DESPITE USING TWO DIFFERENT TYPES OF DETANGLER, CONDITIONER, COMB, AND BEING GENTLE POSSIBLE, PT EXPERIENCED SIGNIFICANT DISCOMFORT AND I ABORTED FURTHER EFFORTS. THIS DOES POSE A CONDITINUED HYGIENE CONCERNED IT IS NOT POSSIBLE TO ENSURE SCALP IS ABLE TO BE CLEANED APPROPRIATELY. CONSULT HAS BEEN PLACED FOR ST FOR SWALLOW EVALUATION; PT/OT; CASE MANAGEMENT - IT APPEARS ADDITIONAL CARE IS NEEDED AT HOME; AND PALLIATIVE CARE FOR ADVANCED CARE PLANNING WITH DEMENTIA AND POSSIBLE PROGSSION WITH DECLINE IN CAPABILITIES.
[2025-05-21] MEDS ORDERED: CALCIUM GLUC IN NACL, ISO-OSM 50 ML IV ONE (10:10)
[2025-05-21] MEDS ORDERED: CefTRIAXone Sodium 1,000 MG in NS 100 ML IV SCH (11:00)
--- NOTE | 2025-05-21 15:20 | NUR ---
THIS PATIENT IS KNOWN TO ME FROM PREVIOUS HOSPITALIZATIONS. HER IS NOT PRESENT AT THIS TIME. PLAN TO MEET WITH HIM TOMORROW FOR ADVANCED CARE PLANNING.
--- NOTE | 2025-05-21 15:43 | NUR ---
TRANSFER NOTE - MEDICAL REPORT GIVEN TO MEDICAL RN AND PT TRANSFERRED TO [facility] VIA WHEELCHAIR WITH ALL PERSONAL BELONGINGS. PATIENT CONTINUOUS MINER OPERATOR HELPER ASSISTED TO BED AND BED ALARM SET. IV PUMP SET AND INFUSING. , GAGAN, NOTIFIED OF TRANSFER AND NEW ROOM NUMBER VIA TELEPHONE.
--- NOTE | 2025-05-21 22:46 | NUR ---
PT HAD 14 BEAT OF TRIGEMENY EKG PERFORMED SHOWED NSR, VSS PT ASYMPTOMATIC. DISCUSSED WITH HOSPITALIST WILL CONTINUE TO MONITOR PT
[2025-05-22] MEDS ORDERED: Insulin Human Lispro 100 Units/ML 3ML Syringe SC SCH
[2025-05-22 04:55] VITALS: BP 93/63
[2025-05-22 05:49] LABS: BASOPHILS ABSOLUTE AUTO 0.01 K/mm3 (0.00-0.23); BASOPHILS PERCENT AUTO 0 % (0-2); EOSINOPHILS ABSOLUTE AUTO 0.06 K/mm3 (0.00-0.68); EOSINOPHILS PERCENT AUTO 1 % (0-6); Hematocrit 28.8 % (33.0-51.0); Hemoglobin 9.3 g/dL (11.5-16.0); IMMATURE GRAN ABSOLUTE AUTO 0.04 K/mm3 (0.00-0.10); IMMATURE GRAN PERCENT AUTO 0 % (0-1); LYMPHOCYTES ABSOLUTE AUTO 1.80 K/mm3 (0.84-5.20); LYMPHOCYTES PERCENT AUTO 19 % (21-46); MONOCYTES ABSOLUTE AUTO 0.47 K/mm3 (0.16-1.47); MONOCYTES PERCENT AUTO 5 % (4-13); Mean Corpuscular HGB Conc 32.3 g/dL (31.5-36.5); Mean Corpuscular Volume 97 fL (80-100); NEUTROPHILS ABSOLUTE AUTO 6.96 K/mm3 (1.96-9.15); NEUTROPHILS PERCENT AUTO 75 % (41-73); NRBC ABSOLUTE 0.00 K/mm3 (0.00-0.02); NRBC Auto 0.0 /100 WBC (0.0-0.2); Platelet Count 100 K/mm3 (150-400); RDW Coefficient Variation 14.0 % (11.7-14.2); RDW Standard Deviation 49.3 fL (35.1-46.3)
--- NOTE | 2025-05-22 05:51 | NUR ---
PT IS ALERT TO SELF, PLEASANT AND COOPERATIVE. PT HAS REFUSED MIDNIGHT VS. PT HAS BEEN NPO T/O THIS SHIFT PENDING SWALLOW STUDY. DUE TO PT BEING NPO AND CBGS WNL LANTUS AND HUMALOG WERE HELD AT THIS TIME PER DR. RIVERA. WILL CONTINUE TO MONITOR. PT AWAKENS TO NAME BUT REMAINS WITHDRAWN AND HAS BEEN SLEEPING T/O THIS SHIFT.
--- NOTE | 2025-05-22 05:53 | NUR ---
PT IS ALERT TO SELF, PLEASANT AND COOPERATIVE. PT HAS REFUSED MIDNIGHT VS. PT HAS BEEN NPO T/O THIS SHIFT PENDING SWALLOW STUDY. DUE TO PT BEING NPO AND CBGS WNL LANTUS AND HUMALOG WERE HELD AT THIS TIME PER DR. RIVERA. WILL CONTINUE TO MONITOR. PT HAS PT HAS NOT URINATED DURING THIS SHIFT BLADDER SCAN WAS PERFORMED AND THERE WAS 265 ML OF URINE. UNCHANGED FROM PREVIOUS MEASUREMENT. PT AWAKENS EASILY TO NAME BUT HAS BEEN WITHDRAWN AND SLEEPING T/O THIS SHIFT.
[2025-05-22 06:16] LABS: Alanine Aminotransfer (ALT/SGP 12.0 U/L (12-78); Albumin, Blood 2.0 g/dL (3.4-5.0); Albumin/Globulin Ratio 0.6 (0.8-1.8); Anion Gap 7.0 mmol/L (3-11); Aspartate Aminotrans (AST/SGOT 13.0 U/L (12-37); Bilirubin, Total 0.3 mg/dL (0.1-1.0); Blood Urea Nitrogen 11.0 mg/dL (8-24); CO2, Blood 24.0 mmol/L (21-32); Calcium, Blood 8.2 mg/dL (8.5-10.1); Chloride, Blood 115.0 mmol/L (98-108); Creatinine, Blood 0.55 mg/dL (0.40-1.00); Globulin, Blood 3.1 g/dL (2.2-4.0); Glucose, Blood 176.0 mg/dL (70-99); Potassium, Blood 3.6 mmol/L (3.5-5.5); Sodium, Blood 142.0 mmol/L (136-145); Total Protein, Blood 5.1 g/dL (6.4-8.2)
[2025-05-22 07:30] VITALS: BP 114/59
--- NOTE | 2025-05-22 10:33 | NUR ---
09 PT AMBULATED 1 ASST TO BATHROOM. PER AIDE, SHE APPEARDD TO NEARLY PASS OUT SITTING DOWN ON TOILET, TURNED WHITE, LOSS RESPONSE FOR A SECOND. CONFUSED. AIDE CALLED ME TO ROOM. SHE COLOR RETURNED, TALKING, SITTING ON TIOLET. PT AMBULATED WITH GAITE BELT FFWW TO BED. STATES FEELS OKAY. PER TELE, NO EVENTS SAME SINUS WITH OCC PVC, RATE 70. NOTIFIED DR. YUSUF.
[2025-05-22 12:21] VITALS: BP 102/76
[2025-05-22] MEDS ORDERED: Fluconazole 400MG/Iso-Sod 200M 200 ML IV ONE (12:45)
--- NOTE | 2025-05-22 16:18 | NUR ---
PT PLEASANTLY CONFUSED TODAY. STATES PT DOES HAVE DIZZY SPELLS AND ACT LIKE MIGHT PASS OUT OCCATIONALLY OVER LAST COUPLE WEEKS AT HOME. STATES ALSO SHE UNWILLING TO CUT NAILS AND HAIR TO GET MATS OUT. HE STATES IS OKAY TO CUT HER HAIR IF NEEDED TO ASSIST TO GET CLEAN. AIDE DID WORK ON HER HAIR LONG TIME TODAY. PT ABULATED TO BATHROOM TODAY. DID HAVE SPELL WHERE NEARLY PASSED OUT. GOT WHITE, NON-RESPONSIVE FOR MOMENT. THEN COLOR RETURNED AND PT CONTINUED TALKING AND ANSWERING QUESTIONS. DR YUSUF NOTIFIED. NO OTHER CONCERNS NOTED. BED IN LOW POSITION, CALLLITE IN REACH, BED ALARM ON FOR SAFETY
[2025-05-22 16:20] VITALS: BP 111/70
[2025-05-22 19:28] VITALS: BP 110/64
[2025-05-22 23:27] VITALS: BP 111/70
[2025-05-23 04:58] VITALS: BP 113/71
--- NOTE | 2025-05-23 05:53 | NUR ---
PT ALERT TO SELF PLEASANTLY CONFUSED. PT PULLED OUT POWERGLIDE TIP WAS INTACT. IV IN AC INFILTRATED. NOTIFIED HOSPICE AND PENDING NEW POWERGLIDE. NEW IV PLACED IN RFA RUNNING IVF WITHOUT DIFFICULTY.
[2025-05-23 05:58] LABS: BASOPHILS ABSOLUTE AUTO 0.00 K/mm3 (0.00-0.23); BASOPHILS PERCENT AUTO 0 % (0-2); EOSINOPHILS ABSOLUTE AUTO 0.05 K/mm3 (0.00-0.68); EOSINOPHILS PERCENT AUTO 1 % (0-6); Hematocrit 29.3 % (33.0-51.0); Hemoglobin 9.3 g/dL (11.5-16.0); IMMATURE GRAN ABSOLUTE AUTO 0.06 K/mm3 (0.00-0.10); IMMATURE GRAN PERCENT AUTO 1 % (0-1); LYMPHOCYTES ABSOLUTE AUTO 1.99 K/mm3 (0.84-5.20); LYMPHOCYTES PERCENT AUTO 24 % (21-46); MONOCYTES ABSOLUTE AUTO 0.62 K/mm3 (0.16-1.47); MONOCYTES PERCENT AUTO 8 % (4-13); Mean Corpuscular HGB Conc 31.7 g/dL (31.5-36.5); Mean Corpuscular Volume 97 fL (80-100); NEUTROPHILS ABSOLUTE AUTO 5.45 K/mm3 (1.96-9.15); NEUTROPHILS PERCENT AUTO 67 % (41-73); NRBC ABSOLUTE 0.00 K/mm3 (0.00-0.02); NRBC Auto 0.0 /100 WBC (0.0-0.2); Platelet Count 105 K/mm3 (150-400); RDW Coefficient Variation 14.4 % (11.7-14.2); RDW Standard Deviation 49.9 fL (35.1-46.3)
[2025-05-23 06:18] LABS: Alanine Aminotransfer (ALT/SGP 13.0 U/L (12-78); Albumin, Blood 1.9 g/dL (3.4-5.0); Albumin/Globulin Ratio 0.6 (0.8-1.8); Anion Gap 6.0 mmol/L (3-11); Aspartate Aminotrans (AST/SGOT 15.0 U/L (12-37); Bilirubin, Total 0.2 mg/dL (0.1-1.0); Blood Urea Nitrogen 9.0 mg/dL (8-24); CO2, Blood 26.0 mmol/L (21-32); Calcium, Blood 8.0 mg/dL (8.5-10.1); Chloride, Blood 112.0 mmol/L (98-108); Creatinine, Blood 0.53 mg/dL (0.40-1.00); Globulin, Blood 3.0 g/dL (2.2-4.0); Glucose, Blood 195.0 mg/dL (70-99); Potassium, Blood 3.3 mmol/L (3.5-5.5); Sodium, Blood 141.0 mmol/L (136-145); Total Protein, Blood 4.9 g/dL (6.4-8.2)
[2025-05-23 07:28] VITALS: BP 106/70
[2025-05-23] MEDS ORDERED: Fluconazole 200MG/Iso-Sod 100M 100 ML IV SCH (09:00)
[2025-05-23] MEDS ORDERED: CefTRIAXone Sodium 1,000 MG in NS 100 ML IV SCH (09:00)
[2025-05-23] MEDS ORDERED: Insulin Human Lispro 100 Units/ML 3ML Syringe SC SCH ×2 (11:30)
[2025-05-23] MEDS ORDERED: Potassium Chloride 10 Meq Tablet SA PO ONE (14:25)
[2025-05-23 16:33] VITALS: BP 107/62
--- NOTE | 2025-05-23 17:30 | NUR ---
PATIENT RESTED IN BED MOST OF DAY, GETTING UP FOR MEALS. COOPERATIVE WITH CARE AND ABLE TO ANSWER SOME QUESTIONS. ALERT TO SELF AND . PLACEMENT TO ASSISTED FACILITY IN PROGRESS. POSSIBLE DC IN NEXT DAY OR TWO.
[2025-05-23 20:31] VITALS: BP 99/52
--- NOTE | 2025-05-24 03:34 | NUR ---
SHIFT SUMMARY: PT IS A&O TO SELF, BUT ABLE TO MAKE NEEDS KNOWN. VSS. PT AMBULATES TO CHAIR WITH 1PA AND FWW. PT DENIED PAIN, AND HAD NO OTHER CONCERNS THIS SHIFT. BED ALARM IS ON. CALL LIGHT IS WITHIN REACH. BED IS LOW AND LOCKED.
[2025-05-24 04:44] VITALS: BP 104/64
[2025-05-24 05:39] LABS: BASOPHILS ABSOLUTE AUTO 0.01 K/mm3 (0.00-0.23); BASOPHILS PERCENT AUTO 0 % (0-2); EOSINOPHILS ABSOLUTE AUTO 0.09 K/mm3 (0.00-0.68); EOSINOPHILS PERCENT AUTO 1 % (0-6); Hematocrit 28.8 % (33.0-51.0); Hemoglobin 9.5 g/dL (11.5-16.0); IMMATURE GRAN ABSOLUTE AUTO 0.04 K/mm3 (0.00-0.10); IMMATURE GRAN PERCENT AUTO 1 % (0-1); LYMPHOCYTES ABSOLUTE AUTO 2.15 K/mm3 (0.84-5.20); LYMPHOCYTES PERCENT AUTO 34 % (21-46); MONOCYTES ABSOLUTE AUTO 0.54 K/mm3 (0.16-1.47); MONOCYTES PERCENT AUTO 8 % (4-13); Mean Corpuscular HGB Conc 33.0 g/dL (31.5-36.5); Mean Corpuscular Volume 96 fL (80-100); NEUTROPHILS ABSOLUTE AUTO 3.59 K/mm3 (1.96-9.15); NEUTROPHILS PERCENT AUTO 56 % (41-73); NRBC ABSOLUTE 0.00 K/mm3 (0.00-0.02); NRBC Auto 0.0 /100 WBC (0.0-0.2); Platelet Count 134 K/mm3 (150-400); RDW Coefficient Variation 14.3 % (11.7-14.2); RDW Standard Deviation 49.9 fL (35.1-46.3)
[2025-05-24 06:05] LABS: Anion Gap 5.0 mmol/L (3-11); Blood Urea Nitrogen 8.0 mg/dL (8-24); CO2, Blood 27.0 mmol/L (21-32); Calcium, Blood 8.2 mg/dL (8.5-10.1); Chloride, Blood 111.0 mmol/L (98-108); Creatinine, Blood 0.49 mg/dL (0.40-1.00); Glucose, Blood 187.0 mg/dL (70-99); Potassium, Blood 3.4 mmol/L (3.5-5.5); Sodium, Blood 140.0 mmol/L (136-145)
[2025-05-24 08:12] VITALS: BP 121/75
[2025-05-24] MEDS ORDERED: Potassium Chloride 10 Meq Tablet SA PO ONE (08:55)
[2025-05-24] MEDS ORDERED: Diflucan100 MG PO (10:31)
[2025-05-24] MEDS ORDERED: CLIN150 PO (10:31)
[2025-05-24] MEDS ORDERED: BASAGLAR K100 UNIT/1 SC (10:31)
[2025-05-24] MEDS ORDERED: INSULIN LI100 UNIT/6 SC (10:32)
[2025-05-24] MEDS ORDERED: VISBIOME 112.51 EACH PO (10:33)
[2025-05-24] MEDS ORDERED: Chloraseptic177 ML PO (10:33)
--- NOTE | 2025-05-24 10:43 | NUR ---
THIS RN CALLED [facility] AND GAVE REPORT TO BRYAN KELLEY.
--- NOTE | 2025-05-24 11:18 | NUR ---
D/C NOTE PT D/C TO [facility] AT 1105. PT A&O TO SELF, VSS, AMB W/ ASSIST, TOLERATING PO, VOIDING, AND DENIED PAIN. BELONGINGS WERE RETURNED. DISCHARGE PACKET GIVEN TO TRANSPORT. PT ESCOURTED OUT VIA W/C BY TRANSPORT. REPORT CALLED, SEE PREVIOUS NOTE.
== END 2025-05-24 11:12 | DRG 640 ==
LOC: ER 10:14 → MEDS 10:15 → ERHOLD 10:15 → MEDS 20:39 → ICUE 05-20 13:46 → MEDS 05-21 15:29
PROVIDERS: Family Medicine; Internal Medicine; Student in an Organized Health Care Education/Training Program; ADMIT Student in an Organized Health Care Education/Training Program
DX: E87.0 Hyperosmolality and hypernatremia (principal); A41.9 Sepsis, unspecified organism; E11.10 Type 2 diabetes mellitus with ketoacidosis without coma; E43 Unspecified severe protein-calorie malnutrition; R65.20 Severe sepsis without septic shock; B37.81 Candidal esophagitis; B37.89 Other sites of candidiasis; Z66 Do not resuscitate; F03.90 Unspecified dementia, unspecified severity, without behavioral disturbance, psychotic disturbance, mood disturbance, and anxiety; I10 Essential (primary) hypertension; T38.3X6A Underdosing of insulin and oral hypoglycemic [antidiabetic] drugs, initial encounter; J01.90 Acute sinusitis, unspecified; E86.0 Dehydration; B95.62 Methicillin resistant Staphylococcus aureus infection as the cause of diseases classified elsewhere; J02.8 Acute pharyngitis due to other specified organisms; Z88.5 Allergy status to narcotic agent; Z68.21 Body mass index [BMI] 21.0-21.9, adult; Z79.83 Long term (current) use of bisphosphonates; Z91.138 Patient's unintentional underdosing of medication regimen for other reason
CPT/HCPCS: 36415; 51701; 70450; 71046; 74177; 80048; 80053; 81001; 82010; 82803; 82947; 83036; 83605; 83735; 83930; 84100; 84295; 84443; 84484; 85025; 87040; 87081; 87086; 87106; 87430; 87637; 92526; 92610; 93005; 93010; 96372; 97110; 97129; 97161; 97165; 97530; 97535; 99285-25; A9270; C1751; G0378; J0612; J0696; J1450; J1650; J1815; J2405; J3480; J7030; J7050; J7070; J7120; Q9967

== ENCOUNTER 2025-08-25 16:42 | Inpatient (IN) | payer MEDICARE, OTHER ==
[~2025-08-25] VITALS: Ht 167.6 cm; Wt 52.2 kg
[~2025-08-25 16:42] MED LIST changes: +CLIN150 PO; +Chloraseptic177 ML PO; +Diflucan100 MG PO; +INSULIN LI100 UNIT/6 SC
[2025-08-25] MEDS ORDERED: NS 1,000 ML IV SCH (17:00)
[2025-08-25 17:50] LABS: BASOPHILS ABSOLUTE AUTO 0.03 K/mm3 (0.00-0.23); BASOPHILS PERCENT AUTO 0 % (0-2); EOSINOPHILS ABSOLUTE AUTO 0.01 K/mm3 (0.00-0.68); EOSINOPHILS PERCENT AUTO 0 % (0-6); Hematocrit 44.0 % (33.0-51.0); Hemoglobin 12.4 g/dL (11.5-16.0); IMMATURE GRAN ABSOLUTE AUTO 0.03 K/mm3 (0.00-0.10); IMMATURE GRAN PERCENT AUTO 0 % (0-1); LYMPHOCYTES ABSOLUTE AUTO 1.54 K/mm3 (0.84-5.20); LYMPHOCYTES PERCENT AUTO 14 % (21-46); MONOCYTES ABSOLUTE AUTO 0.62 K/mm3 (0.16-1.47); MONOCYTES PERCENT AUTO 6 % (4-13); Mean Corpuscular HGB Conc 28.2 g/dL (31.5-36.5); Mean Corpuscular Volume 89 fL (80-100); NEUTROPHILS ABSOLUTE AUTO 8.74 K/mm3 (1.96-9.15); NEUTROPHILS PERCENT AUTO 80 % (41-73); NRBC ABSOLUTE 0.00 K/mm3 (0.00-0.02); NRBC Auto 0.0 /100 WBC (0.0-0.2); Platelet Count 171 K/mm3 (150-400); RDW Coefficient Variation 17.1 % (11.7-14.2); RDW Standard Deviation 54.7 fL (35.1-46.3)
[2025-08-25 18:10] LABS: Magnesium, Blood 2.9 mg/dL (1.6-2.4); Phosphorus, Blood 3.4 mg/dL (2.5-4.9)
[2025-08-25 18:29] LABS: Alanine Aminotransfer (ALT/SGP 19.0 U/L (12-78); Albumin, Blood 3.8 g/dL (3.4-5.0); Albumin/Globulin Ratio 1.0 (0.8-1.8); Anion Gap 10.0 mmol/L (3-11); Aspartate Aminotrans (AST/SGOT 20.0 U/L (12-37); Bilirubin, Total 0.5 mg/dL (0.1-1.0); Blood Urea Nitrogen 38.0 mg/dL (8-24); CO2, Blood 25.0 mmol/L (21-32); Calcium, Blood 9.9 mg/dL (8.5-10.1); Chloride, Blood 123.0 mmol/L (98-108); Creatinine, Blood 0.89 mg/dL (0.40-1.00); Globulin, Blood 3.7 g/dL (2.2-4.0); Glucose, Blood 256.0 mg/dL (70-99); Potassium, Blood 4.3 mmol/L (3.5-5.5); Sodium, Blood 154.0 mmol/L (136-145); Total Protein, Blood 7.5 g/dL (6.4-8.2)
[2025-08-25 18:32] LABS: Source, Urine Straight Cath
[2025-08-25 18:48] LABS: Bilirubin, Urine Neg (Neg); Color, Urine Yellow (P-Yellow); Glucose Qualitative, Urine 4+ (Neg); Ketones, Urine Neg (Neg); Leukocyte Esterase, Urine Neg (Neg); Protein, Urine 1+ (Neg); Specific Gravity, Urine 1.015 (1.003-1.022); Urobilinogen, Urine NORM (Normal)
[2025-08-25 19:10] LABS: Red Blood Cells, Urine 0-2 /hpf (0-2)
[2025-08-25] MEDS ORDERED: Ondansetron HCl 2 MG / ML 2ML Vial IV PRN (20:45)
[2025-08-25] MEDS ORDERED: FLU VACC TS2025(65UP)/MF59C/PF 45 MCG/0.5 ML SYRINGE IM SCH (20:55)
[2025-08-25] MEDS ORDERED: FARXIGA5 MG PO (21:35)
[2025-08-25] MEDS ORDERED: GLUCOPHAGE1000 M1 PO (21:36)
[2025-08-25] MEDS ORDERED: GLIPIZIDE XL10 MG PO (21:46)
[2025-08-25 22:37] VITALS: BP 108/82
[2025-08-26 01:19] LABS: BASOPHILS ABSOLUTE AUTO 0.02 K/mm3 (0.00-0.23); BASOPHILS PERCENT AUTO 0 % (0-2); EOSINOPHILS ABSOLUTE AUTO 0.01 K/mm3 (0.00-0.68); EOSINOPHILS PERCENT AUTO 0 % (0-6); Hematocrit 37.5 % (33.0-51.0); Hemoglobin 10.6 g/dL (11.5-16.0); IMMATURE GRAN ABSOLUTE AUTO 0.03 K/mm3 (0.00-0.10); IMMATURE GRAN PERCENT AUTO 0 % (0-1); LYMPHOCYTES ABSOLUTE AUTO 2.44 K/mm3 (0.84-5.20); LYMPHOCYTES PERCENT AUTO 21 % (21-46); MONOCYTES ABSOLUTE AUTO 0.66 K/mm3 (0.16-1.47); MONOCYTES PERCENT AUTO 6 % (4-13); Mean Corpuscular HGB Conc 28.3 g/dL (31.5-36.5); Mean Corpuscular Volume 88 fL (80-100); NEUTROPHILS ABSOLUTE AUTO 8.46 K/mm3 (1.96-9.15); NEUTROPHILS PERCENT AUTO 73 % (41-73); NRBC ABSOLUTE 0.00 K/mm3 (0.00-0.02); NRBC Auto 0.0 /100 WBC (0.0-0.2); Platelet Count 201 K/mm3 (150-400); RDW Coefficient Variation 16.5 % (11.7-14.2); RDW Standard Deviation 53.4 fL (35.1-46.3)
[2025-08-26 01:42] LABS: Magnesium, Blood 2.6 mg/dL (1.6-2.4)
[2025-08-26 01:43] LABS: Alanine Aminotransfer (ALT/SGP 17.0 U/L (12-78); Albumin, Blood 3.4 g/dL (3.4-5.0); Albumin/Globulin Ratio 1.0 (0.8-1.8); Anion Gap 9.0 mmol/L (3-11); Aspartate Aminotrans (AST/SGOT 15.0 U/L (12-37); Bilirubin, Total 0.5 mg/dL (0.1-1.0); Blood Urea Nitrogen 35.0 mg/dL (8-24); CO2, Blood 25.0 mmol/L (21-32); Calcium, Blood 9.1 mg/dL (8.5-10.1); Chloride, Blood 126.0 mmol/L (98-108); Creatinine, Blood 0.83 mg/dL (0.40-1.00); Globulin, Blood 3.5 g/dL (2.2-4.0); Glucose, Blood 196.0 mg/dL (70-99); Potassium, Blood 4.1 mmol/L (3.5-5.5); Sodium, Blood 156.0 mmol/L (136-145); Total Protein, Blood 6.9 g/dL (6.4-8.2)
[2025-08-26 04:25] VITALS: BP 99/67
[2025-08-26] MEDS ORDERED: Glycerin Adult Supp 1 EA PR ONE (04:25)
--- NOTE | 2025-08-26 05:05 | NUR ---
SHIFT SUMMARY ADMIT FOR HYPERNATREMIA 2/2 POOR PO INTAKE, FAILURE TO THRIVE, AND DEHYDRATION. ONLY PO INTAKE IS SEVERAL BITES OF CHOCOLATE PUDDING SINCE ADMIT. PT ALERT, ORIENTED X2 TO SELF AND PERSON, DISORIENTED TO PLACE, SITUATION, TIME. DOES TAKE PILLS WHOLE WITH PUDDING, AND DRINKS WATER WELL WITHOUT A STRAW. FINISHED 1 L OF 0.45% SALINE IN LAC IV. NOW RUNNING D5W @ 75 ML/HR (BAG 1 OF 2). BEGIN Q4H FSBS AND SLIDING SCALE INSULIN PER DEC. PENDING PALLIATIVE CONSULT AND FAMILY IN AM. PENDING ABX TIL URINE CULTURE RESULTS. DOES FREQUENTLY ASK FOR HELP THROUGHOUT EVENING, ATTEMPTS TO BED EXIT. REQUIRES 1P ASSIST TO STAND/PIVOT TO BSC. NO URINE OUTPUT SINCE ADMISSION. PT HAS VISIBLE LARGE STOOL BURDEN IN RECTUM AFTER ATTEMPTED BMS WITHOUT SUCCESS. PLAN FOR GLYCERIN SUPPOSITORY PER DEC. PRE-MEDICATED WITH TYLENOL.
[2025-08-26 07:59] VITALS: BP 93/64
[2025-08-26] MEDS ORDERED: Insulin Regular 100 UNIT/ML 10ML Vial SC SCH (08:00)
[2025-08-26] MEDS ORDERED: Enoxaparin 40 MG/0.4 ML SYR SC SCH (09:00)
--- NOTE | 2025-08-26 11:09 | NUR ---
ROUNDED ON PT WITH DR. ESCALONA AND BSRN. PATIENT WAS ASLEEP UPON ARRIVAL, BUT AWOKE EASILY. HER EXTREMITIES ARE COOL AND DUSKY. SHE IS NOT RESPONDING IN A MEANINGFUL WAY AT THIS TIME. ACCORDING TO NISSAN SALES CONSULTANT SHE REFUSED BREAKFAST. PATIENT IS STILL UNDERGOING DIAGNOSTICS AND REVIEW FROM PROVIDER. WILL CONTINUE TO SUPPORT AND FOLLOW PATIENT IF GOC CONVERSATION BECOMES NECESSARY
[2025-08-26] MEDS ORDERED: D5W-1/4NS 1,000 ML IV SCH (11:45)
[2025-08-26 12:54] VITALS: BP 108/66
--- NOTE | 2025-08-26 14:16 | NUR ---
SPOKE WITH ON THE PHONE TODAY. STATES, PATIENT WAS DRINKING SOME ENSURES AT HOME, NOT MUCH WATER AND MOST OF THE TIME WOULD JUST HOLD IT IN HER MOUTH AND NOT SWOLLOW. HE STATES HE COULDNT GET HER TO EAT MUCH OF ANYTHING FOR THE LAST COUPLE WEEKS. 3 DAYS AGO SHE WAS USING HE WALKER AND FAMILY STAND BY ASSISTANCE TO WALK TO THE BATHROOM BUT CONSTIPATION AND PAINFUL URINATION ADDED SOME DIFFICULTIES. WAS UPDATED ABOUT PLAN FOR PATIENT.
[2025-08-26 15:39] VITALS: BP 105/83
--- NOTE | 2025-08-26 18:06 | NUR ---
END OF SHIFT NOTE PATIENT RESTING IN BED. ANXIOUS WITH CARE. A&OX2. 1-2 PERSON ASSIST IN BED DUE TO ANXIOUS BEHAVIOR AND CORD PULLING. CATH IN PLACE, DRAINING TO GRAVITY, YELLOW URINE. ATTENDS IN PLACE. PATIENT HAD A XL HARD BOWEL MOVEMENT THIS MORNING, BOWEL CARE ORDERED. Q4 CBG, WITH COVERAGE. CALL LIGHT IN REACH, BED ALARM ON. NO OTHER CONCERNS FOR THIS SHIFT.
[2025-08-26 19:44] VITALS: BP 117/69
[2025-08-27 04:26] VITALS: BP 121/73
--- NOTE | 2025-08-27 05:37 | NUR ---
PT REFUSING LABS THIS AM, ASKED LAB TO RETURN LATER TO TRY AGAIN IN HOPES THAT PT IS LESS CONFUSED.
[2025-08-27 07:30] VITALS: BP 101/56
[2025-08-27 10:44] LABS: BASOPHILS ABSOLUTE AUTO 0.02 K/mm3 (0.00-0.23); BASOPHILS PERCENT AUTO 0 % (0-2); EOSINOPHILS ABSOLUTE AUTO 0.10 K/mm3 (0.00-0.68); EOSINOPHILS PERCENT AUTO 1 % (0-6); Hematocrit 33.9 % (33.0-51.0); Hemoglobin 9.8 g/dL (11.5-16.0); IMMATURE GRAN ABSOLUTE AUTO 0.02 K/mm3 (0.00-0.10); IMMATURE GRAN PERCENT AUTO 0 % (0-1); LYMPHOCYTES ABSOLUTE AUTO 2.50 K/mm3 (0.84-5.20); LYMPHOCYTES PERCENT AUTO 34 % (21-46); MONOCYTES ABSOLUTE AUTO 0.45 K/mm3 (0.16-1.47); MONOCYTES PERCENT AUTO 6 % (4-13); Mean Corpuscular HGB Conc 28.9 g/dL (31.5-36.5); Mean Corpuscular Volume 85 fL (80-100); NEUTROPHILS ABSOLUTE AUTO 4.21 K/mm3 (1.96-9.15); NEUTROPHILS PERCENT AUTO 58 % (41-73); NRBC ABSOLUTE 0.00 K/mm3 (0.00-0.02); NRBC Auto 0.0 /100 WBC (0.0-0.2); Platelet Count 162 K/mm3 (150-400); RDW Coefficient Variation 16.7 % (11.7-14.2); RDW Standard Deviation 52.2 fL (35.1-46.3)
[2025-08-27 11:24] LABS: Alanine Aminotransfer (ALT/SGP 15.0 U/L (12-78); Albumin, Blood 2.8 g/dL (3.4-5.0); Albumin/Globulin Ratio 0.9 (0.8-1.8); Anion Gap 8.0 mmol/L (3-11); Aspartate Aminotrans (AST/SGOT 18.0 U/L (12-37); Bilirubin, Total 0.4 mg/dL (0.1-1.0); Blood Urea Nitrogen 14.0 mg/dL (8-24); CO2, Blood 24.0 mmol/L (21-32); Calcium, Blood 8.0 mg/dL (8.5-10.1); Chloride, Blood 112.0 mmol/L (98-108); Creatinine, Blood 0.57 mg/dL (0.40-1.00); Globulin, Blood 3.0 g/dL (2.2-4.0); Glucose, Blood 225.0 mg/dL (70-99); Potassium, Blood 3.2 mmol/L (3.5-5.5); Sodium, Blood 141.0 mmol/L (136-145); Total Protein, Blood 5.8 g/dL (6.4-8.2)
--- NOTE | 2025-08-27 11:30 | NUR ---
CALLED TO NOTIFY DR MONCADA OF K+ 3.2, WILL WATCH FOR ORDERS TO FOLLOW
[2025-08-27] MEDS ORDERED: Insulin Human Lispro 100 Units/ML 3ML Syringe SC SCH (12:00)
[2025-08-27 15:09] VITALS: BP 107/72
--- NOTE | 2025-08-27 18:40 | NUR ---
SUMMARY- PT A/O X 1-2. SLEEPING MOST OF THE DAY BUT AWAKENS TO VERBAL STIM. PT ANSWERS YES AND NO QUESTIONS. TURNED Q2, REMANIS DEPENDANT WITH ADL'S. LIMITED PO INTAKE EXCEPT FOR SIPS OF CLEARS TODAY, AND HALF A CHOCHLATE PUDDING. TOOK ONE BITE OF CARROT AND PASTA FOR DINNER- IVF DC'D, ENCOURAGING FLUIDS BUT PT ONLY TAKES TINY SIPS AT A TIME. KCL 3.2 TODAY, SUPPLEMENT ORDERED AND ADMIN PO. KNOX PATENT AND DRAINING CLEAR YELLOW. FOLLOWING STRICT I/O. SAW NO FAMILY TODAY. WILL REPORT TO NOC RN
[2025-08-27 19:51] VITALS: BP 114/70
[2025-08-28 06:04] VITALS: BP 104/66
--- NOTE | 2025-08-28 06:22 | NUR ---
PT HAD FAMILY COME TO VISIT DAUGHTER KHADIJAH AND PT'S GAGAN (TAMRA) EXPRESSED DESIRE TO SPEAK WITH PALLIATIVE CARE TO DISCUSS GOALS OF CARE, STATE THEY'D LIKE FOR PT TO COME HOME BUT HAVE SOME CONCERNS. D/C'D KNOX PER PROTOCOL OK'D PER DR. RITCHIE. PT PASSED VOIDING TRIAL. ORAL INTAKE IMPROVING PT ATE 2 PUDDING CUPS AND HAD A GLASS OF UNSWEETENED ICED TEA. MARKED IMPROVEMENT FROM DAY SHIFT. PT HAD 2 SMALL AND 1 LARGE BM. PT REFUSING LABS, PT REFUSED PREVIOUS AM WELL BUT WAS MORE WILLING LATER IN THE MORNING PER PREVIOUS DAY SHIFT RN. PT REMAINS ORIENTED TO SELF AND PERSON.
[2025-08-28 09:02] VITALS: BP 101/67
[2025-08-28 10:13] LABS: Hematocrit 36.9 % (33.0-51.0); Hemoglobin 11.0 g/dL (11.5-16.0); Mean Corpuscular HGB Conc 29.8 g/dL (31.5-36.5); Mean Corpuscular Volume 85 fL (80-100); NRBC ABSOLUTE 0.00 K/mm3 (0.00-0.02); NRBC Auto 0.0 /100 WBC (0.0-0.2); Platelet Count 121 K/mm3 (150-400); RDW Coefficient Variation 16.5 % (11.7-14.2); RDW Standard Deviation 50.9 fL (35.1-46.3)
[2025-08-28 10:38] LABS: Albumin, Blood 2.8 g/dL (3.4-5.0); Anion Gap 10 mmol/L (3-11); Blood Urea Nitrogen 10 mg/dL (8-24); CO2, Blood 22 mmol/L (21-32); Calcium, Blood 8.1 mg/dL (8.5-10.1); Chloride, Blood 114 mmol/L (98-108); Creatinine, Blood 0.63 mg/dL (0.40-1.00); Glucose, Blood 279 mg/dL (70-99); Magnesium, Blood 1.9 mg/dL (1.6-2.4); Phosphorus, Blood 1.9 mg/dL (2.5-4.9); Potassium, Blood 3.0 mmol/L (3.5-5.5); Sodium, Blood 143 mmol/L (136-145)
[2025-08-28] MEDS ORDERED: Insulin Human Lispro 100 Units/ML 3ML Syringe SC SCH (11:30)
[2025-08-28 17:10] VITALS: BP 137/91
--- NOTE | 2025-08-28 17:13 | NUR ---
PALLIATIVE CARE VISIT: CONSULT RECEIVED FOR GOC DUE TO END STAGE DEMENTIA, FAILURE TO THRIVE. MET WITH PT IN THE ROOM. PT IS ABLE TO ANSWER QUESTIONS. SHE DOES NOT KNOW WHY SHE IS IN THE HOSPITAL BUT SHE KNOWS WHERE SHE IS AND WHERE SHE LIVES. PT IS CURRENTLY C/O L SIDE CHEST PAIN DESCRIBED SHARP AND STABBING. SHE ALSO C/O SOB "I CAN'T CATCH MY BREATH". O2 SATS ARE 99% ON RA. PULSE 97. RN REPORTS PT ATE VERY LARGE DINNER AND POTENTIAL FOR GI DISCOMFORT. CALLED DR. MONCADA BUT HE WAS NOT AVAILABLE AND SPOKE TO SO TRISTAN. SBAR GIVEN. ORDERS RECEIVED FOR EKG NOW, GI COCKTAIL X 1 NOW, TROPONIN LEVEL NOW AND AGAIN IN TWO HOURS. ORDERS PLACED. UPDATED PRIMARY RN. CALLED AND SPOKE TO SPOUSE ON THE PHONE AND UPDATED HIM WITH CURRENT SITUATION. WE DISCUSSED GOC, AND HE WANTS TO MEET TOMORROW MORNING TO DISCUSS. HE WILL NOTIFY WHEN HE IS HERE.
[2025-08-28] MEDS ORDERED: Mag Hydrox/Al Hydrox/Simeth 18 ML,Lidocaine 2% Viscous Soln 9 ML,Atropine/Scopalam/Hyos... PO ONE (17:15)
[2025-08-28 17:43] VITALS: BP 123/83
--- NOTE | 2025-08-28 17:53 | NUR ---
PT A/OX4. USES CALL LIGHT APPROPRIATELY. PT REPORTED NAUSEA THIS EVENING, MEDICATED PER EMAR. PT HAS BEEN EATING POORLY TODAY, DECLINED HER DINNER TRAY. 2PA TO THE BEDSIDE COMMODE. PUREWICK IN PLACE. ON 3L O2 NC. NO ACUTE NEEDS AT THIS TIME.
--- NOTE | 2025-08-28 18:10 | NUR ---
PT A/OX2 - TO SELF AND PERSON. PT REMAINS IMPULSIVE WITH GETTING OUT OF BED. BED ALARM IN PLACE. PT HAS HAD LOOSE BMS TODAY. 1PA TO THE BATHROOM. PT HAS EATEN MOST OF HER MEAL TRAYS TODAY. PT C/O CP THIS EVENING, GI COCKTAIL GIVEN TO PT AND SHE HAS DENIED CP SINCE. NO ACUTE NEEDS AT THIS TIME.
[2025-08-28 19:41] VITALS: BP 107/75
[2025-08-28] MEDS ORDERED: Sodium Phosphate Mono/Dibasic 250 MG Tab PO SCH (21:00)
[2025-08-29 03:32] VITALS: BP 105/67
--- NOTE | 2025-08-29 04:54 | NUR ---
SHIFT SUMMARY PATIENT ADMITTED WITH HYPERNATREMIA. VSS. PATIENT IMPULSIVE, GETTING OUT OF BED WITHOUT CALLING. UNSTEADY GAIT. ORIENTED TO CALL LIGHT. BLOOD SUGAR 359 AT HS, HOSPITALIST NOTIFIED, 5 UNITS OF INSULIN GIVEN PER EMAR. NO ACUTE OVERNIGHT EVENTS. BED IN LOWEST POSITION FOR SAFETY. BED RAILS UP X2. CALL LIGHT WITHIN REACH.
[2025-08-29 05:29] LABS: Albumin, Blood 2.7 g/dL (3.4-5.0); Anion Gap 7 mmol/L (3-11); Blood Urea Nitrogen 13 mg/dL (8-24); CO2, Blood 24 mmol/L (21-32); Calcium, Blood 8.3 mg/dL (8.5-10.1); Chloride, Blood 113 mmol/L (98-108); Creatinine, Blood 0.64 mg/dL (0.40-1.00); Glucose, Blood 268 mg/dL (70-99); Phosphorus, Blood 2.0 mg/dL (2.5-4.9); Potassium, Blood 3.5 mmol/L (3.5-5.5); Sodium, Blood 140 mmol/L (136-145)
[2025-08-29 07:17] VITALS: BP 117/72
[2025-08-29] MEDS ORDERED: Ondansetron 4 MG SoluTab MM PRN (11:15)
--- NOTE | 2025-08-29 12:00 | NUR ---
PALLIATIVE CARE VISIT: MET WITH SPOUSE GAGAN AND DAUGHTER KHADIJAH TO DISCUSS GOC. DISCUSSED PT DECLINE IN HEALTH OVER THE PAST YEAR. SHE HAS HAD A 40 LB WEIGHT LOSS. GAGAN STATES HE CAN'T GET HER TO EAT OR DRINK ENOUGH TO MAINTAIN WEIGHT. SHE CAN'T WALK BY HERSELF, SHE IS FORGETFUL. DISCUSSED HOSPICE SERVICES IN DETAIL. SPOUSE IS AGREEABLE TO HOSPICE SERVICES IN THE HOME. HE STATES HE AND HIS DAUGHTER KHADIJAH HAVE BEEN TAKING CARE OF HER. PROVIDED PAMPHLETS AND CHOICE LETTER OF AVAILABLE HOSPICE AGENCIES. GAGAN STATES THEY HAVE [facility] CURRENTLY AND THEY ARE SATISFIED WITH THE CARE THEY PROVIDE, BUT THEY WOULD BE AGREEABLE TO [facility] ALSO IF THEY CAN ADMIT TO SERVICE EARLIER THAN [facility]. THEY WOULD LIKE HER TO COME SOON POSSIBLE. SPOKE TO DR. MONCADA AND HE STATES SHE IS READY FOR DISCHARGE. LEFT MESSAGE WITH CM. UPDATED PRIMARY RN.
[2025-08-29 15:27] VITALS: BP 117/79
--- NOTE | 2025-08-29 15:32 | NUR ---
"Spiritual Care Visit | Nurse Request Pt. is awake in bed when she welcomes my visit. Pt. is pleasant but seems timid. Facilitate a life update and considered matters of brittany and belief. Pt. displayed evidence of some mild confusion, but displayed increased trust as I listened with empathy and a calming presence. Pt. welcomed prayer. Prayed with Pt. Pt. verbalized gratitude for the spiritual care visit."
--- NOTE | 2025-08-29 17:13 | NUR ---
SHIFT SUMMARY; PT A/OX2 (PERSON AND SELF), 2 PERSON ASSIST TO RESTROOM W/ GAIT BELT, AND BED ALARM ACTIVATED. PT UNSTABLE AND WEAK TODAY WITH AMBULATION. PT REPORTS NAUSEA EARLIER WITHIN THE DAY. DR. MONCADA NOTIFIED VIA PHONE. PT MEDICATED PER EMAR. PALLIATIVE CARE AT BEDSIDE W/ FAMILY PRESENT. SEE NOTE IN CHART. [facility] CALLED MED FLOOR [facility] AND LEFT MESSAGE STATING THAT PT HAS A BED PLACEMENT. MESSAGE IN FRONT OF CHART. BED IN LOW POSITION AND CALL LIGHT WITHIN REACH. VSS.
--- NOTE | 2025-08-29 18:41 | NUR ---
palliative care note: Polst on [facility]. Printed and placed on chart. Sent copy to records.
[2025-08-29 19:39] VITALS: BP 86/56
[2025-08-30 02:00] VITALS: BP 106/72
--- NOTE | 2025-08-30 03:21 | NUR ---
SHIFT SUMMARY: PT IS AOX2-3 AND SLEPT MOST OF THE NIGHT. PLAN IS FOR PT TO DC HOME ON HOSPICE. PT HAS A NO IV ACCESS ORDER. PT IS IMPULSIVE AND BEDALARM IS SET. PTY IS ON RM AIR. NO ACUTE CHANGES THIS SHIFT.
[2025-08-30 07:25] VITALS: BP 94/63
--- NOTE | 2025-08-30 16:12 | NUR ---
PT DISCHARGED TODAY ON HOME HOSPICE. DISCHARGE INSCTRUCTIONS DISCUSSED WITH PT, PT VERBALIZED UNDERSTANDING. PT WAS TAKEN OUT VIA W/C BY EMS.
--- NOTE | 2025-08-30 16:17 | NUR ---
SUPPORTIVE VISIT THIS MORNING. NO ACUTE S/SX OF DISTRESS NOTED AT THIS TIME. PRIMARY RN DECLINES ANY NEEDS AT THIS TIME. PC TO REMAIN AVAILABLE NEEDED.
--- NOTE | 2025-08-30 16:18 | NUR ---
PT A/OX3. NOT ORIENTED TO DATE/TIME. PT HAS BEEN COOPERATIVE WITH CARE TODAY BUT MOOD HAS BEEN LABILE. 2PA TO BEDSIDE COMMODE. PUREWICK IS IN PLACE. PURCUTANEOUS DRAINS IN PLACE FOR LEFT KIDNEY ABCESS DRAINAGE. PT CURRENTLY ON 3L O2 NC WHICH IS HER BL. NS RUNNING AT 50 PER EMAR. PT HAS DENIED PAIN AND NAUSEA. NO ACUTE NEEDS AT THIS TIME.
== END 2025-08-30 15:00 | disposition hospice, home (50) | DRG 640 ==
LOC: ER 16:42 → MEDS 16:43
PROVIDERS: Internal Medicine; Student in an Organized Health Care Education/Training Program; ADMIT Student in an Organized Health Care Education/Training Program
PROC: 0T9B70Z Drainage of Bladder with Drainage Device, Via Natural or Artificial Opening (ICD-10-PCS; principal; 2025-08-26)
DX: E87.0 Hyperosmolality and hypernatremia (principal); G93.41 Metabolic encephalopathy; Z68.1 Body mass index [BMI] 19.9 or less, adult; D63.8 Anemia in other chronic diseases classified elsewhere; I25.10 Atherosclerotic heart disease of native coronary artery without angina pectoris; E86.0 Dehydration; Z66 Do not resuscitate; G30.9 Alzheimer's disease, unspecified; F02.80 Dementia in other diseases classified elsewhere, unspecified severity, without behavioral disturbance, psychotic disturbance, mood disturbance, and anxiety; E87.20 Acidosis, unspecified; I10 Essential (primary) hypertension; I95.9 Hypotension, unspecified; R62.7 Adult failure to thrive; R82.71 Bacteriuria; E11.65 Type 2 diabetes mellitus with hyperglycemia; E86.1 Hypovolemia; E87.6 Hypokalemia; E83.39 Other disorders of phosphorus metabolism; Z88.5 Allergy status to narcotic agent; Z79.4 Long term (current) use of insulin
CPT/HCPCS: 36415; 51701; 51702; 71045; 76770; 80053; 80069; 81001; 82947; 83605; 83690; 83735; 83880; 84100; 84295; 84484; 85025; 85027; 87040; 87086; 93005; 93010; 96360; 96361; 96372; 99285-25; A9270; G0378; J1650; J1815; J7030; J7042; J7070